=== PATIENT | male | born 1940 | race Caucasian/White ===

== ENCOUNTER 2017-11-07 21:03 | Inpatient (IN) | payer MEDICARE, MEDICAID ==
[~2017-11-07] VITALS: Ht 157.5 cm; Wt 70.3 kg
[2017-11-07 21:32] LABS: BASOPHILS % (AUTO) 0.4 % (0-1); EOSINOPHILS # (AUTO) 0.3 X10'3 (0-0.9); EOSINOPHILS % (AUTO) 3.5 % (0-6); HEMATOCRIT 39.1 % (42.0-52.0); HEMOGLOBIN 13.5 g/dl (14.0-17.9); LYMPHOCYTES # (AUTO) 1.4 X10'3 (1.1-4.8); LYMPHOCYTES % (AUTO) 13.5 % (21-51); MEAN CORPUSCULAR HEMOGLOBIN 31.9 PG (27.0-31.0); MEAN CORPUSCULAR HGB CONC 34.4 % (33.0-36.5); MEAN CORPUSCULAR VOLUME 92.7 FL (78-98); MEAN PLATELET VOLUME 7.3 FL (7.4-10.4); MONOCYTES % (AUTO) 10.4 % (2-12); NEUTROPHILS # (AUTO) 7.3 X10'3 (1.8-7.7); NEUTROPHILS % (AUTO) 72.2 % (42-75); PLATELET COUNT 253 X10'3 (140-440); RED BLOOD COUNT 4.22 X10'6 (4.70-6.10); RED CELL DISTRIBUTION WIDTH 13.7 % (11.5-14.5); WHITE BLOOD COUNT 10.1 X10'3 (4.5-11.0)
[2017-11-07 21:54] LABS: ALANINE AMINOTRANSFERASE 42 U/L (12-78); ALBUMIN 3.6 G/DL (3.4-5.0); ALBUMIN/GLOBULIN RATIO 0.9 (1.1-1.5); ALKALINE PHOSPHATASE 130 IU/L (46-116); ANION GAP 10 (8-16); ASPARTATE AMINO TRANSFERASE 83 U/L (10-37); BILIRUBIN,TOTAL 0.8 MG/DL (0.1-1.0); BLOOD UREA NITROGEN 31 MG/DL (7-18); BUN/CREATININE RATIO 19.5 (5.4-32.0); CALCIUM 9.3 MG/DL (8.5-10.1); CHLORIDE 99 MMOL/L (99-107); CREATININE 1.59 MG/DL (0.60-1.10); GLUCOSE 84 MG/DL (70-104); MAGNESIUM 2.5 MG/DL (1.5-2.4); POTASSIUM 3.4 MMOL/L (3.5-5.1); SODIUM 135 MMOL/L (135-145); TOTAL CARBON DIOXIDE 25.6 MMOL/L (24-32); TOTAL PROTEIN 7.5 G/DL (6.4-8.2); eGFR 42 ML/MIN
[2017-11-07] MEDS ORDERED: ondansetron/PF 4mg/2ml inj IV PRN (23:35)
[2017-11-07] MEDS ORDERED: morphine 4 MG/ML inj SYRINge IV PRN (23:35)
[2017-11-07] MEDS ORDERED: acetaminophen 325mg tablet PO PRN (23:35)
[2017-11-07 23:57] LABS: HEMOGLOBIN A1C 6.1 % (4.5-6.2)
[2017-11-08] VITALS (13 sets, daily range): BP systolic 94–145; BP diastolic 45–77
[2017-11-08] MEDS ORDERED: heparin 10,000 units/1 ML INJ IV ONE
[2017-11-08 00:05] LABS: PROTHROMBIN TIME 10.6 SECONDS (9.0-12.0)
[2017-11-08 00:53] LABS: PARTIAL THROMBOPLASTIN TIME 39 SECONDS (22-32)
[2017-11-08] MEDS ORDERED: tamsulosin 0.4mg capsule PO SCH (02:20)
[2017-11-08] MEDS ORDERED: LYR75C PO (04:40)
[2017-11-08] MEDS ORDERED: CYCL-394 PO (04:40)
[2017-11-08] MEDS ORDERED: HYDR-3965 PO (04:40)
[2017-11-08] MEDS ORDERED: METO-477 PO (04:40)
[2017-11-08] MEDS ORDERED: CLON0.1T PO (04:40)
[2017-11-08] MEDS ORDERED: CARV25TA2 PO (04:40)
[2017-11-08] MEDS ORDERED: CLON-529 PO (04:40)
[2017-11-08] MEDS ORDERED: ALLO100T PO (04:40)
[2017-11-08] MEDS ORDERED: FURO-150 PO (04:40)
[2017-11-08] MEDS ORDERED: AMLO2.5T2 PO (04:40)
[2017-11-08] MEDS ORDERED: FLO0.4C PO (04:40)
[2017-11-08 06:12] LABS: BASOPHILS # (AUTO) 0.1 X10'3 (0-0.2); EOSINOPHILS # (AUTO) 0.2 X10'3 (0-0.9); EOSINOPHILS % (AUTO) 2.6 % (0-6); HEMATOCRIT 39.1 % (42.0-52.0); HEMOGLOBIN 13.6 g/dl (14.0-17.9); LYMPHOCYTES # (AUTO) 0.7 X10'3 (1.1-4.8); LYMPHOCYTES % (AUTO) 7.4 % (21-51); MEAN CORPUSCULAR HEMOGLOBIN 32.2 PG (27.0-31.0); MEAN CORPUSCULAR HGB CONC 34.7 % (33.0-36.5); MEAN CORPUSCULAR VOLUME 92.7 FL (78-98); MEAN PLATELET VOLUME 7.5 FL (7.4-10.4); MONOCYTES # (AUTO) 0.7 X10'3 (0-0.9); MONOCYTES % (AUTO) 7.6 % (2-12); NEUTROPHILS # (AUTO) 7.2 X10'3 (1.8-7.7); NEUTROPHILS % (AUTO) 81.4 % (42-75); PLATELET COUNT 223 X10'3 (140-440); RED BLOOD COUNT 4.21 X10'6 (4.70-6.10); RED CELL DISTRIBUTION WIDTH 13.6 % (11.5-14.5); WHITE BLOOD COUNT 8.8 X10'3 (4.5-11.0)
[2017-11-08 06:42] LABS: ALBUMIN 3.4 G/DL (3.4-5.0); ANION GAP 15 (8-16); BLOOD UREA NITROGEN 28 MG/DL (7-18); BUN/CREATININE RATIO 20.4 (5.4-32.0); CALCIUM 9.3 MG/DL (8.5-10.1); CHLORIDE 102 MMOL/L (99-107); CHOL/HDL RATIO 2.7 (0.00-4.99); CHOLESTEROL 156 MG/DL (0-200); CREATININE 1.37 MG/DL (0.60-1.10); GLUCOSE 97 MG/DL (70-104); HDL CHOLESTEROL 57 MG/DL (35-60); LDL CHOLESTEROL 80 MG/DL (50-100); POTASSIUM 3.5 MMOL/L (3.5-5.1); SODIUM 139 MMOL/L (135-145); TRIGLYCERIDES 71 MG/DL (20-135); eGFR 50 ML/MIN
[2017-11-08] MEDS ORDERED: carVEDilol 3.125mg tablet PO SCH (08:00)
[2017-11-08] MEDS: dutasteride 0.5 MG capsule PO SCH (08:00)
[2017-11-08] MEDS ORDERED: iohexol 350MG/ML 100ml bottle IV ONE (09:47)
[2017-11-08] MEDS ORDERED: LIDOcaine 1%/PF (10mg/ml) 5ml vial ONE ×2 (09:47)
[2017-11-08] MEDS ORDERED: midazolam 2 mg/2 ml injection ONE (10:22)
[2017-11-08] MEDS: pantoprazole 40mg Tablet.DR PO SCH (11:28)
[2017-11-08] MEDS: aspirin 81mg tab.chew PO SCH (11:29)
[2017-11-08] MEDS: atorvastatin 20mg tablet PO SCH (11:30)
[2017-11-08] MEDS: lisinopril 5mg tablet PO SCH (11:31)
[2017-11-08] MEDS ORDERED: nitroGLYCERIN 0.4mg SUBLingual tab SL PRN (11:35)
[2017-11-08] MEDS ORDERED: HYDROcodone/acetaminophen 5mg/325mg tablet PO PRN (11:35)
[2017-11-08] MEDS ORDERED: normal saline 1000ml 1,000 ML IV SCH (11:35)
[2017-11-08] MEDS ORDERED: proCHLORperazine 10 MG/2 ml inj IV PRN (11:35)
[2017-11-08] MEDS ORDERED: OXAZEpam 15mg capsule PO PRN (11:35)
[2017-11-08] MEDS ORDERED: MESSAGE TO NURSING PO ONE ×4 (11:40)
[2017-11-08] MEDS ORDERED: dextrose 50%-water 50ml dispensing syringe IV PRN (11:40)
[2017-11-08 12:34] LABS: HEMATOCRIT 37.3 % (42.0-52.0); HEMOGLOBIN 12.9 g/dl (14.0-17.9); MEAN CORPUSCULAR HEMOGLOBIN 32.1 PG (27.0-31.0); MEAN CORPUSCULAR HGB CONC 34.7 % (33.0-36.5); MEAN CORPUSCULAR VOLUME 92.5 FL (78-98); MEAN PLATELET VOLUME 7.9 FL (7.4-10.4); PLATELET COUNT 225 X10'3 (140-440); RED BLOOD COUNT 4.03 X10'6 (4.70-6.10); RED CELL DISTRIBUTION WIDTH 13.9 % (11.5-14.5); WHITE BLOOD COUNT 6.8 X10'3 (4.5-11.0)
[2017-11-08] MEDS: HYDROcodone/acetaminophen 10/325mg tab PO PRN ×2 (12:42→19:20)
[2017-11-08 12:47] LABS: PARTIAL THROMBOPLASTIN TIME 32 SECONDS (22-32); PROTHROMBIN TIME 10.3 SECONDS (9.0-12.0)
[2017-11-08 12:48] LABS: ALBUMIN 3.3 G/DL (3.4-5.0); ANION GAP 12 (8-16); BLOOD UREA NITROGEN 24 MG/DL (7-18); BUN/CREATININE RATIO 17.9 (5.4-32.0); CALCIUM 8.9 MG/DL (8.5-10.1); CHLORIDE 103 MMOL/L (99-107); CREATININE 1.34 MG/DL (0.60-1.10); GLUCOSE 89 MG/DL (70-104); POTASSIUM 3.7 MMOL/L (3.5-5.1); SODIUM 139 MMOL/L (135-145); TOTAL CARBON DIOXIDE 23.8 MMOL/L (24-32); eGFR 52 ML/MIN
[2017-11-08] MEDS: insulin Lispro (HumaLOG) vial - multi-dose SQ SCH ×2 (13:00→18:00)
[2017-11-08] MEDS: cloNIDine 0.1 mg tablet PO SCH (19:17)
[2017-11-08] MEDS: allopurinol 100mg tablet PO SCH (19:19)
[2017-11-08] MEDS: carVEDilol 12.5mg tablet PO SCH (19:20)
[2017-11-08] MEDS: cyclobenzaprine 10mg tablet PO SCH (19:23)
[2017-11-08] MEDS: pregabalin 75mg capsule PO SCH (19:23)
[2017-11-08] MEDS ORDERED: METOPROLOL TARTRATE PO SCH (20:00)
[2017-11-08] MEDS: heparin 10,000 units/1 ML INJ IV PRN (21:07)
[2017-11-08] MEDS: tamsulosin 0.4mg capsule PO SCH (21:18)
[2017-11-09 03:00] VITALS: BP 122/62
[2017-11-09] MEDS: HYDROcodone/acetaminophen 10/325mg tab PO PRN ×3 (03:40→20:34)
[2017-11-09 03:49] LABS: BASOPHILS % (AUTO) 0.5 % (0-1); EOSINOPHILS # (AUTO) 0.3 X10'3 (0-0.9); EOSINOPHILS % (AUTO) 4.4 % (0-6); HEMOGLOBIN 11.7 g/dl (14.0-17.9); LYMPHOCYTES # (AUTO) 0.7 X10'3 (1.1-4.8); LYMPHOCYTES % (AUTO) 10.5 % (21-51); MEAN CORPUSCULAR HEMOGLOBIN 31.9 PG (27.0-31.0); MEAN CORPUSCULAR HGB CONC 34.3 % (33.0-36.5); MEAN PLATELET VOLUME 7.9 FL (7.4-10.4); MONOCYTES # (AUTO) 0.6 X10'3 (0-0.9); MONOCYTES % (AUTO) 10.2 % (2-12); NEUTROPHILS # (AUTO) 4.6 X10'3 (1.8-7.7); NEUTROPHILS % (AUTO) 74.4 % (42-75); PLATELET COUNT 200 X10'3 (140-440); RED BLOOD COUNT 3.66 X10'6 (4.70-6.10); RED CELL DISTRIBUTION WIDTH 13.6 % (11.5-14.5); WHITE BLOOD COUNT 6.2 X10'3 (4.5-11.0)
[2017-11-09 03:59] LABS: ALBUMIN 2.9 G/DL (3.4-5.0); ANION GAP 10 (8-16); BLOOD UREA NITROGEN 24 MG/DL (7-18); BUN/CREATININE RATIO 18.2 (5.4-32.0); CALCIUM 8.7 MG/DL (8.5-10.1); CHLORIDE 104 MMOL/L (99-107); CREATININE 1.32 MG/DL (0.60-1.10); GLUCOSE 120 MG/DL (70-104); POTASSIUM 3.2 MMOL/L (3.5-5.1); SODIUM 140 MMOL/L (135-145); TOTAL CARBON DIOXIDE 25.6 MMOL/L (24-32); eGFR 52 ML/MIN
[2017-11-09 06:15] VITALS: BP 112/57
[2017-11-09] MEDS: allopurinol 100mg tablet PO SCH ×2 (07:26→20:35)
[2017-11-09] MEDS: aspirin 81mg tab.chew PO SCH (07:27)
[2017-11-09] MEDS: atorvastatin 20mg tablet PO SCH (07:27)
[2017-11-09] MEDS: pantoprazole 40mg Tablet.DR PO SCH (07:28)
[2017-11-09] MEDS: tamsulosin 0.4mg capsule PO SCH ×2 (07:28→20:36)
[2017-11-09] MEDS: cloNIDine 0.1 mg tablet PO SCH ×2 (07:28→20:57)
[2017-11-09] MEDS: cyclobenzaprine 10mg tablet PO SCH ×2 (07:28→20:36)
[2017-11-09] MEDS: carVEDilol 12.5mg tablet PO SCH ×2 (07:28→20:35)
[2017-11-09] MEDS: furosemide 20MG tablet PO SCH (07:35)
[2017-11-09] MEDS: pregabalin 75mg capsule PO SCH ×2 (08:00→20:00)
[2017-11-09] MEDS: lisinopril 5mg tablet PO SCH (08:00)
[2017-11-09] MEDS: amLODIPine 2.5mg tablet PO SCH (08:00)
[2017-11-09] MEDS: insulin Lispro (HumaLOG) vial - multi-dose SQ SCH ×3 (09:00→18:00)
[2017-11-09] MEDS ORDERED: MESSAGE TO NURSING PO ONE (10:00)
[2017-11-09] MEDS: dutasteride 0.5 MG capsule PO SCH (10:30)
[2017-11-09] MEDS ORDERED: famotidine/PF 10 mg/ml inj IV ONE (10:45)
[2017-11-09] MEDS ORDERED: LORazepam 2 mg/ml vial IV ONE (10:45)
[2017-11-09 11:00] VITALS: BP 110/53
[2017-11-09] MEDS ORDERED: magnesium 4gm in 100ml NS 100 ML IV PRN (12:45)
[2017-11-09] MEDS ORDERED: magnesium Cl slow-release 64mg tablet PO PRN (12:45)
[2017-11-09] MEDS ORDERED: potassium Cl 40MEQ/NS 500ml 500 ML IV PRN ×2 (12:45)
[2017-11-09] MEDS ORDERED: magnesium 2GM in 50ml NS 50 ML IV PRN (12:45)
[2017-11-09] MEDS ORDERED: potassium Cl 20 mEq SR tablet PO PRN (12:45)
[2017-11-09] MEDS: potassium Cl 20 mEq SR tablet PO PRN ×2 (12:57→17:16)
[2017-11-09] MEDS: heparin 10,000 units/1 ML INJ IV PRN ×2 (14:04→21:13)
[2017-11-09 16:12] VITALS: BP 140/60
[2017-11-09] MEDS ORDERED: GABA-532 (16:36)
[2017-11-09 19:00] VITALS: BP 134/68
[2017-11-09] MEDS ORDERED: insulin regular, human inj. 100 UNITS in normal saline 100ml IV soln 100 ML IV SCH ×2 (20:00)
[2017-11-09] MEDS: mupirocin 2% ointment 22GM NS SCH (20:00)
[2017-11-09] MEDS ORDERED: chlorhexidine gluc 0.4% **topical ** 120ml btl. TP ONE (21:00)
[2017-11-09 22:05] LABS: ABG BASE EXCESS 0.6 mmol/L (-2.0-3.0); ABG HCO3 23.8 mmol/L (22.0-26.0); ABG OXYGEN SATURATION 96.1 % (95-98); ABG PCO2 (T) 33.2 mmHg (35.0-48.0); ABG PH (T) 7.473 (7.350-7.450); ABG PO2 (T) 80.6 mmHg (83-108); ALLEN'S TEST Positive; FCOHb 0.1 % (0.5-1.5); FMetHb 0.1 % (0.3-1.12); FO2Hb 95.9 % (94-100); PATIENT TEMPERATURE 36.7
[2017-11-09 23:00] VITALS: BP 145/88
[2017-11-10 03:00] VITALS: BP 158/80
[2017-11-10 03:29] LABS: BASOPHILS % (AUTO) 0.7 % (0-1); EOSINOPHILS # (AUTO) 0.3 X10'3 (0-0.9); EOSINOPHILS % (AUTO) 5.5 % (0-6); HEMATOCRIT 35.2 % (42.0-52.0); HEMOGLOBIN 12.2 g/dl (14.0-17.9); LYMPHOCYTES # (AUTO) 0.9 X10'3 (1.1-4.8); LYMPHOCYTES % (AUTO) 14.2 % (21-51); MEAN CORPUSCULAR HEMOGLOBIN 32.4 PG (27.0-31.0); MEAN CORPUSCULAR HGB CONC 34.8 % (33.0-36.5); MEAN CORPUSCULAR VOLUME 93.1 FL (78-98); MEAN PLATELET VOLUME 8.3 FL (7.4-10.4); MONOCYTES # (AUTO) 0.7 X10'3 (0-0.9); MONOCYTES % (AUTO) 11.7 % (2-12); NEUTROPHILS # (AUTO) 4.2 X10'3 (1.8-7.7); NEUTROPHILS % (AUTO) 67.9 % (42-75); PLATELET COUNT 207 X10'3 (140-440); RED BLOOD COUNT 3.78 X10'6 (4.70-6.10); RED CELL DISTRIBUTION WIDTH 14.1 % (11.5-14.5); WHITE BLOOD COUNT 6.2 X10'3 (4.5-11.0)
[2017-11-10 03:33] LABS: ALBUMIN 3.2 G/DL (3.4-5.0); ANION GAP 8 (8-16); BLOOD UREA NITROGEN 23 MG/DL (7-18); CHLORIDE 105 MMOL/L (99-107); CREATININE 1.53 MG/DL (0.60-1.10); GLUCOSE 134 MG/DL (70-104); POTASSIUM 3.8 MMOL/L (3.5-5.1); PROTHROMBIN TIME 10.1 SECONDS (9.0-12.0); SODIUM 141 MMOL/L (135-145); TOTAL CARBON DIOXIDE 28.3 MMOL/L (24-32); eGFR 44 ML/MIN
[2017-11-10] MEDS ORDERED: LORazepam 2 mg/ml vial IV ONE ×2 (05:30→09:40)
[2017-11-10] MEDS ORDERED: famotidine/PF 10 mg/ml inj IV ONE ×2 (05:30)
[2017-11-10] MEDS ORDERED: cefazolin/dext.iso 2gm/50ml 50 ML IV ONE (05:30)
[2017-11-10] MEDS ORDERED: vancomycin/NS 1 GM ADD-VANTAGE 250 ML IV ONE ×2 (05:30→09:40)
[2017-11-10] MEDS ORDERED: ceFAZolin inj. 2,000 MG in dextrose 5%-water 100 ML IV ONE ×2 (05:30→09:40)
[2017-11-10 06:30] VITALS: BP 112/57
[2017-11-10] MEDS: pregabalin 75mg capsule PO SCH ×2 (07:45→20:00)
[2017-11-10] MEDS: cloNIDine 0.1 mg tablet PO SCH ×2 (07:45→21:08)
[2017-11-10] MEDS: tamsulosin 0.4mg capsule PO SCH ×2 (07:46→21:10)
[2017-11-10] MEDS: furosemide 20MG tablet PO SCH (07:46)
[2017-11-10] MEDS: cyclobenzaprine 10mg tablet PO SCH ×2 (07:46→21:11)
[2017-11-10] MEDS: allopurinol 100mg tablet PO SCH ×2 (07:46→21:11)
[2017-11-10] MEDS: atorvastatin 20mg tablet PO SCH (07:46)
[2017-11-10] MEDS: carVEDilol 12.5mg tablet PO SCH ×2 (07:47→21:12)
[2017-11-10] MEDS: pantoprazole 40mg Tablet.DR PO SCH (07:47)
[2017-11-10] MEDS: aspirin 81mg tab.chew PO SCH (07:47)
[2017-11-10] MEDS: lisinopril 5mg tablet PO SCH (08:00)
[2017-11-10] MEDS: amLODIPine 2.5mg tablet PO SCH (08:00)
[2017-11-10] MEDS: dutasteride 0.5 MG capsule PO SCH (08:00)
[2017-11-10] MEDS: mupirocin 2% ointment 22GM NS SCH (08:00)
[2017-11-10] MEDS: insulin Lispro (HumaLOG) vial - multi-dose SQ SCH (09:00)
[2017-11-10 11:00] VITALS: BP 101/48
[2017-11-10] MEDS: ringers solution, lacted 1,000 ML IV SCH (11:21)
[2017-11-10] MEDS ORDERED: ringers solution, lacted 1,000 ML IV ONE (13:14)
[2017-11-10 15:00] VITALS: BP 130/61
[2017-11-10] MEDS: HYDROcodone/acetaminophen 10/325mg tab PO PRN ×2 (16:42→21:08)
[2017-11-10 19:00] VITALS: BP 129/61
[2017-11-10 23:00] VITALS: BP 126/61
[2017-11-11] VITALS (38 sets, daily range): BP systolic 70–139; BP diastolic 36–69
[2017-11-11] MEDS: heparin 10,000 units/1 ML INJ IV PRN (00:15)
[2017-11-11] MEDS: ringers solution, lacted 1,000 ML IV SCH (01:35)
[2017-11-11 05:30] LABS: BASOPHILS % (AUTO) 0.8 % (0-1); EOSINOPHILS # (AUTO) 0.3 X10'3 (0-0.9); HEMATOCRIT 31.9 % (42.0-52.0); MEAN CORPUSCULAR HEMOGLOBIN 31.7 PG (27.0-31.0); MEAN CORPUSCULAR HGB CONC 34.6 % (33.0-36.5); MEAN CORPUSCULAR VOLUME 91.5 FL (78-98); MEAN PLATELET VOLUME 8.2 FL (7.4-10.4); MONOCYTES # (AUTO) 0.5 X10'3 (0-0.9); MONOCYTES % (AUTO) 9.9 % (2-12); NEUTROPHILS # (AUTO) 3.4 X10'3 (1.8-7.7); NEUTROPHILS % (AUTO) 64.3 % (42-75); PLATELET COUNT 197 X10'3 (140-440); RED BLOOD COUNT 3.48 X10'6 (4.70-6.10); RED CELL DISTRIBUTION WIDTH 13.9 % (11.5-14.5); WHITE BLOOD COUNT 5.3 X10'3 (4.5-11.0)
[2017-11-11] MEDS ORDERED: famotidine/PF 10 mg/ml inj IV ONE (05:30)
[2017-11-11] MEDS ORDERED: ceFAZolin inj. 2,000 MG in dextrose 5%-water 100 ML IV ONE (05:30)
[2017-11-11] MEDS: insulin Lispro (HumaLOG) vial - multi-dose SQ SCH ×3 (05:30→18:00)
[2017-11-11] MEDS ORDERED: vancomycin/NS 1 GM ADD-VANTAGE 250 ML IV ONE (05:30)
[2017-11-11] MEDS ORDERED: LORazepam 2 mg/ml vial IV ONE (05:30)
[2017-11-11 05:39] LABS: PROTHROMBIN TIME 9.9 SECONDS (9.0-12.0)
[2017-11-11 05:49] LABS: ALBUMIN 3.1 G/DL (3.4-5.0); ANION GAP 9 (8-16); BLOOD UREA NITROGEN 22 MG/DL (7-18); BUN/CREATININE RATIO 15.1 (5.4-32.0); CALCIUM 9.1 MG/DL (8.5-10.1); CHLORIDE 105 MMOL/L (99-107); CREATININE 1.46 MG/DL (0.60-1.10); GLUCOSE 116 MG/DL (70-104); MAGNESIUM 1.9 MG/DL (1.5-2.4); POTASSIUM 3.8 MMOL/L (3.5-5.1); SODIUM 140 MMOL/L (135-145); TOTAL CARBON DIOXIDE 25.8 MMOL/L (24-32); eGFR 47 ML/MIN
[2017-11-11] MEDS ORDERED: diphenhydrAMINE 50 mg/ml inj ONE ×2 (06:55→11:54)
[2017-11-11] MEDS ORDERED: sevoflurane 250ml liquid IH ONE (06:55)
[2017-11-11] MEDS ORDERED: calcium chloride 100 MG/1 ML inj IV ONE ×3 (06:55→12:16)
[2017-11-11] MEDS ORDERED: protamine sulf. 10mg/ml inj. IV ONE (06:55)
[2017-11-11] MEDS ORDERED: MIDAZolam 1mg/ml 10ml vial ONE (07:01)
[2017-11-11] MEDS ORDERED: SUFENTANIL CITRATE 50 MCG/ML 2ml ampule IV ONE (07:01)
[2017-11-11] MEDS ORDERED: etomidate 2mg/ml inj. ONE (07:05)
[2017-11-11] MEDS ORDERED: pancuronium br 1mg/ml inj IV ONE (07:05)
[2017-11-11] MEDS ORDERED: ePHEDrine 50MG/ML INJ. ONE (07:06)
[2017-11-11] MEDS ORDERED: phenylephrine 10mg/ml inj IV ONE ×2 (07:06→08:00)
[2017-11-11] MEDS: pantoprazole 40mg Tablet.DR PO SCH (07:30)
[2017-11-11 08:00] LABS: ABG BASE EXCESS -0.2 mmol/L (-2.0-3.0); ABG HCO3 23.5 mmol/L (22.0-26.0); ABG OXYGEN SATURATION 98.9 % (95-98); ABG PCO2 34.9 mmHg (35.0-45.0); ABG PH 7.447 (7.350-7.450); ABG PO2 183.6 mmHg (60.0-100.0); CL (ABG) 106 mmol/L (99-107); FCOHb 0.3 % (0.5-1.5); FMetHb 0.3 % (0.3-1.12); FO2Hb 98.3 % (94-100); GLUCOSE (ABG) 131 mg/dl (70-105); IONIZED CA (ABG) 1.14 mmol/L (1.03-1.32); K (ABG) 3.5 mmol/L (3.3-5.1); NA (ABG) 138 mmol/L (135-145); TOTAL HEMOGLOBIN 10.4 G/dl (14.0-18.0)
[2017-11-11] MEDS: carVEDilol 12.5mg tablet PO SCH (08:00)
[2017-11-11] MEDS: furosemide 20MG tablet PO SCH (08:00)
[2017-11-11] MEDS: allopurinol 100mg tablet PO SCH ×2 (08:00→20:00)
[2017-11-11] MEDS ORDERED: methylPREDNISolone sod. succ. 500mg inj ONE (08:00)
[2017-11-11] MEDS: cyclobenzaprine 10mg tablet PO SCH (08:00)
[2017-11-11] MEDS: tamsulosin 0.4mg capsule PO SCH (08:00)
[2017-11-11] MEDS: dutasteride 0.5 MG capsule PO SCH (08:00)
[2017-11-11] MEDS: aspirin 81mg tab.chew PO SCH (08:00)
[2017-11-11] MEDS ORDERED: papaverine 30 mg/ml 2ml inj. ONE (08:00)
[2017-11-11] MEDS: cloNIDine 0.1 mg tablet PO SCH (08:00)
[2017-11-11] MEDS ORDERED: LIDOcaine 2% (20 mg/ml) 5ml cardiac syringe ONE (08:00)
[2017-11-11] MEDS: atorvastatin 20mg tablet PO SCH (08:00)
[2017-11-11] MEDS ORDERED: sodium bicarbonate (8.4%) 1 mEq/ml syringe ONE (08:00)
[2017-11-11] MEDS ORDERED: heparin 1,000 units/ml 10ml inj ONE (08:00)
[2017-11-11] MEDS: lisinopril 5mg tablet PO SCH (08:00)
[2017-11-11] MEDS: pregabalin 75mg capsule PO SCH ×2 (08:00→20:00)
[2017-11-11] MEDS ORDERED: albumin (human) 25% 100 ML IV solution IV ONE (08:00)
[2017-11-11] MEDS ORDERED: heparin 10,000 units/1 ML INJ ONE ×2 (08:00)
[2017-11-11] MEDS ORDERED: potassium acetate 2 mEq/1ml inj. IV ONE (08:00)
[2017-11-11] MEDS ORDERED: atropine 0.1mg/ml 10ml syringe ONE (08:00)
[2017-11-11] MEDS ORDERED: MAGNESIUM SULFATE 4 MEQ/ML (1gm/2ml) injection ONE (08:00)
[2017-11-11] MEDS ORDERED: heparin 10,000 units/1 ML INJ IR ONE (08:18)
[2017-11-11] MEDS ORDERED: papaverine 30 mg/ml 2ml inj. IA ONE (08:19)
[2017-11-11 08:21] LABS: ACT @ 1.70 U 367 SEC (193-297); ACT @ 2.84 U 506 SEC (260-420); BASELINE ACT 176 SEC (101-148); PATIENT WEIGHT 70.0k KG
[2017-11-11] MEDS ORDERED: NORMAL SALINE IV ONE (08:40)
[2017-11-11] MEDS ORDERED: TRANEXAMIC ACID IV ONE (08:40)
[2017-11-11 09:25] LABS: ABG BASE EXCESS 0.2 mmol/L (-2.0-3.0); ABG HCO3 23.7 mmol/L (22.0-26.0); ABG OXYGEN SATURATION 99.4 % (95-98); ABG PCO2 32.8 mmHg (35.0-45.0); ABG PH 7.476 (7.350-7.450); ABG PO2 421.3 mmHg (60.0-100.0); CL (ABG) 104 mmol/L (99-107); FCOHb 0.6 % (0.5-1.5); FMetHb 0.4 % (0.3-1.12); FO2Hb 98.4 % (94-100); GLUCOSE (ABG) 97 mg/dl (70-105); IONIZED CA (ABG) 1.06 mmol/L (1.03-1.32); K (ABG) 4.6 mmol/L (3.3-5.1); NA (ABG) 136 mmol/L (135-145); TOTAL HEMOGLOBIN 7.4 G/dl (14.0-18.0)
[2017-11-11 09:46] LABS: ABG BASE EXCESS VENOUS 1.7 mmol/L; ABG HCO3 VENOUS 26.5 mmol/L; ABG PCO2 VENOUS 42.7 mmHg; ABG PO2 VENOUS 52.2 mmHg; CL (ABG) 105 mmol/L (99-107); FCOHb VENOUS 0.9 %; FMetHb VENOUS 0.4 %; FO2Hb VENOUS 84.7 %; GLUCOSE (ABG) 107 mg/dl (70-105); IONIZED CA (ABG) 1.08 mmol/L (1.03-1.32); K (ABG) 4.5 mmol/L (3.3-5.1); NA (ABG) 137 mmol/L (135-145); TOTAL HEMOGLOBIN 7.7 G/dl (14.0-18.0)
[2017-11-11 10:20] LABS: ABG BASE EXCESS VENOUS -1.3 mmol/L; ABG HCO3 VENOUS 23.1 mmol/L; ABG PCO2 VENOUS 37.3 mmHg; CL (ABG) 105 mmol/L (99-107); FCOHb VENOUS 0.6 %; FHHb VENOUS 13.7 %; FMetHb VENOUS 0.5 %; FO2Hb VENOUS 85.2 %; GLUCOSE (ABG) 123 mg/dl (70-105); IONIZED CA (ABG) 1.08 mmol/L (1.03-1.32); K (ABG) 4.6 mmol/L (3.3-5.1); NA (ABG) 136 mmol/L (135-145); TOTAL HEMOGLOBIN 8.1 G/dl (14.0-18.0)
[2017-11-11 10:50] LABS: ABG BASE EXCESS -1.7 mmol/L (-2.0-3.0); ABG HCO3 22.1 mmol/L (22.0-26.0); ABG OXYGEN SATURATION 99.2 % (95-98); ABG PCO2 33.5 mmHg (35.0-45.0); ABG PH 7.438 (7.350-7.450); ABG PO2 287.8 mmHg (60.0-100.0); CL (ABG) 106 mmol/L (99-107); FCOHb 0.4 % (0.5-1.5); FMetHb 0.6 % (0.3-1.12); FO2Hb 98.2 % (94-100); GLUCOSE (ABG) 118 mg/dl (70-105); IONIZED CA (ABG) 1.07 mmol/L (1.03-1.32); K (ABG) 4.2 mmol/L (3.3-5.1); NA (ABG) 137 mmol/L (135-145); TOTAL HEMOGLOBIN 8.3 G/dl (14.0-18.0)
[2017-11-11 11:25] LABS: ABG BASE EXCESS 2.8 mmol/L (-2.0-3.0); ABG HCO3 26.5 mmol/L (22.0-26.0); ABG OXYGEN SATURATION 99.3 % (95-98); ABG PCO2 36.7 mmHg (35.0-45.0); ABG PH 7.477 (7.350-7.450); ABG PO2 468.8 mmHg (60.0-100.0); CL (ABG) 105 mmol/L (99-107); FCOHb 0.4 % (0.5-1.5); FMetHb 0.6 % (0.3-1.12); FO2Hb 98.3 % (94-100); GLUCOSE (ABG) 109 mg/dl (70-105); IONIZED CA (ABG) 1.24 mmol/L (1.03-1.32); K (ABG) 4.3 mmol/L (3.3-5.1); NA (ABG) 137 mmol/L (135-145); TOTAL HEMOGLOBIN 7.5 G/dl (14.0-18.0)
[2017-11-11] MEDS ORDERED: dexamethasone sod phosphate 4mg/ml inj. ONE (11:51)
[2017-11-11] MEDS ORDERED: midazolam 2 mg/2 ml injection IV ONE (12:15)
[2017-11-11 12:21] LABS: ABG BASE EXCESS VENOUS -0.4 mmol/L; ABG HCO3 VENOUS 24.6 mmol/L; ABG PCO2 VENOUS 41.9 mmHg; ABG PO2 VENOUS 30.7 mmHg; CL (ABG) 106 mmol/L (99-107); FCOHb VENOUS 0.5 %; FHHb VENOUS 41.9 %; FMetHb VENOUS 0.5 %; FO2Hb VENOUS 57.1 %; GLUCOSE (ABG) 118 mg/dl (70-105); IONIZED CA (ABG) 1.35 mmol/L (1.03-1.32); K (ABG) 4.3 mmol/L (3.3-5.1); NA (ABG) 138 mmol/L (135-145); TOTAL HEMOGLOBIN 9.1 G/dl (14.0-18.0)
[2017-11-11] MEDS ORDERED: nitroGLYCERIN-Tridil 50MG/D5W 250 ML IV PRN (13:10)
[2017-11-11] MEDS ORDERED: sodium phosphate inj. 15 MMOL in dextrose 5%-water 150 ML IV PRN (13:10)
[2017-11-11] MEDS ORDERED: metoclopramide 5 mg/ml inj IV PRN (13:10)
[2017-11-11] MEDS ORDERED: insulin regular, human inj. 100 UNITS in normal saline 100ml IV soln 100 ML IV SCH ×2 (13:10)
[2017-11-11] MEDS ORDERED: magnesium 4gm in 100ml NS 100 ML IV PRN (13:10)
[2017-11-11] MEDS ORDERED: dextrose 50%-water 50ml dispensing syringe IV PRN (13:10)
[2017-11-11] MEDS ORDERED: magnesium 2GM in 50ml NS 50 ML IV PRN (13:10)
[2017-11-11] MEDS ORDERED: DOPamine 400mg/D5W 250ml 250 ML IV PRN (13:10)
[2017-11-11] MEDS ORDERED: acetaminophen 325mg tablet PO PRN (13:10)
[2017-11-11] MEDS ORDERED: Neutra Phos packet PO PRN (13:10)
[2017-11-11] MEDS ORDERED: magnesium hydroxide 30ml (MOM) UD suspension PO PRN (13:10)
[2017-11-11] MEDS ORDERED: niCARDipine/sod cl 20mg/200ml 200 ML IV PRN (13:10)
[2017-11-11] MEDS ORDERED: normal saline 250ml IV soln 250 ML IV PRN (13:10)
[2017-11-11] MEDS ORDERED: sodium phosphate inj. 30 MMOL in dextrose 5%-water 250 ML IV PRN (13:10)
[2017-11-11] MEDS ORDERED: potassium Cl 20mEq/100mL bag 100 ML IV PRN ×2 (13:10)
[2017-11-11] MEDS ORDERED: albumin (Human) 5% 250ml 250 ML IV ONE (13:19)
[2017-11-11 13:27] LABS: BASOPHILS % (AUTO) 0.2 % (0-1); EOSINOPHILS # (AUTO) 0.2 X10'3 (0-0.9); EOSINOPHILS % (AUTO) 1.6 % (0-6); HEMATOCRIT 30.3 % (42.0-52.0); HEMOGLOBIN 10.8 g/dl (14.0-17.9); LYMPHOCYTES # (AUTO) 0.4 X10'3 (1.1-4.8); LYMPHOCYTES % (AUTO) 3.6 % (21-51); MEAN CORPUSCULAR HEMOGLOBIN 32.1 PG (27.0-31.0); MEAN CORPUSCULAR HGB CONC 35.5 % (33.0-36.5); MEAN CORPUSCULAR VOLUME 90.5 FL (78-98); MEAN PLATELET VOLUME 7.9 FL (7.4-10.4); MONOCYTES # (AUTO) 0.5 X10'3 (0-0.9); MONOCYTES % (AUTO) 4.4 % (2-12); NEUTROPHILS # (AUTO) 10.1 X10'3 (1.8-7.7); NEUTROPHILS % (AUTO) 90.2 % (42-75); PLATELET COUNT 139 X10'3 (140-440); RED BLOOD COUNT 3.35 X10'6 (4.70-6.10); RED CELL DISTRIBUTION WIDTH 14.2 % (11.5-14.5); WHITE BLOOD COUNT 11.2 X10'3 (4.5-11.0)
[2017-11-11 13:40] LABS: ABG HCO3 24.8 mmol/L (22.0-26.0); ABG OXYGEN SATURATION 97.4 % (95-98); ABG PCO2 (T) 36.7 mmHg (35.0-48.0); ABG PH (T) 7.448 (7.350-7.450); ABG PO2 (T) 106.9 mmHg (83-108); FCOHb 0.3 % (0.5-1.5); FMetHb 0.1 % (0.3-1.12); MINUTE VOLUME 11 L/min; PEEP 5 cm H2O; RESPIRATORY RATE 12 b/min; RESPIRATORY RATE (OBSERVED) 12 b/min; TIDAL VOLUME 600 mL
[2017-11-11 13:41] LABS: INR 1.1 INR; PARTIAL THROMBOPLASTIN TIME 40 SECONDS (22-32); PROTHROMBIN TIME 11.1 SECONDS (9.0-12.0)
[2017-11-11 13:46] LABS: ALANINE AMINOTRANSFERASE 25 U/L (12-78); ALBUMIN 2.5 G/DL (3.4-5.0); ALBUMIN/GLOBULIN RATIO 1.1 (1.1-1.5); ALKALINE PHOSPHATASE 60 IU/L (46-116); ANION GAP 8 (8-16); ASPARTATE AMINO TRANSFERASE 42 U/L (10-37); BILIRUBIN,TOTAL 0.6 MG/DL (0.1-1.0); BLOOD UREA NITROGEN 18 MG/DL (7-18); BUN/CREATININE RATIO 15.3 (5.4-32.0); CHLORIDE 110 MMOL/L (99-107); CREATININE 1.18 MG/DL (0.60-1.10); GLUCOSE 171 MG/DL (70-104); MAGNESIUM 3.9 MG/DL (1.5-2.4); PHOSPHORUS 2.2 MG/DL (2.3-4.5); POTASSIUM 4.5 MMOL/L (3.5-5.1); SODIUM 143 MMOL/L (135-145); TOTAL CARBON DIOXIDE 24.9 MMOL/L (24-32); TOTAL PROTEIN 4.8 G/DL (6.4-8.2); eGFR 60 ML/MIN
[2017-11-11] MEDS: insulin regular, human inj. 100 UNITS in normal saline 100ml IV soln 100 ML IV SCH ×6 (14:10→23:29)
[2017-11-11] MEDS: sodium chloride 0.45% 1,000 ML IV SCH (14:17)
[2017-11-11] MEDS: albumin (Human) 5% 250ml 250 ML IV PRN ×4 (14:22→20:16)
[2017-11-11] MEDS: ceFAZolin 1GM/D5W- ADD-VANTAGE 50 ML IV SCH (16:41)
[2017-11-11 16:53] LABS: MEAN CORPUSCULAR HEMOGLOBIN 31.7 PG (27.0-31.0); MEAN CORPUSCULAR HGB CONC 34.4 % (33.0-36.5); PLATELET COUNT 118 X10'3 (140-440); WHITE BLOOD COUNT 7.9 X10'3 (4.5-11.0)
[2017-11-11 16:57] LABS: HEMATOCRIT 20.3 % (42.0-52.0)
[2017-11-11] MEDS: morphine 4 MG/ML inj SYRINge IV PRN ×3 (17:16→21:40)
[2017-11-11] MEDS ORDERED: propofol 1000mg/100ml bottle 100 ML IV ONE (18:09)
[2017-11-11 18:27] LABS: INR 1.1 INR; PARTIAL THROMBOPLASTIN TIME 66 SECONDS (22-32); PROTHROMBIN TIME 11.6 SECONDS (9.0-12.0)
[2017-11-11] MEDS ORDERED: midazolam 100mg in NS 100ml 100 ML IV PRN (18:50)
[2017-11-11] MEDS ORDERED: NORepinephrine 8mg/ 250ml NS 250 ML IV SCH (19:55)
[2017-11-11] MEDS: docusate sod 100mg capsule PO SCH (20:00)
[2017-11-11] MEDS: vancomycin/NS 1 GM ADD-VANTAGE 250 ML IV SCH (21:32)
[2017-11-11] MEDS: mupirocin 2% ointment 22GM NS SCH (21:32)
[2017-11-11 22:19] LABS: BASOPHILS % (AUTO) 0 % (0-1); EOSINOPHILS % (AUTO) 0 % (0-6); LYMPHOCYTES # (AUTO) 0.2 X10'3 (1.1-4.8); LYMPHOCYTES % (AUTO) 3.2 % (21-51); MEAN CORPUSCULAR HEMOGLOBIN 30.8 PG (27.0-31.0); MEAN CORPUSCULAR HGB CONC 34.8 % (33.0-36.5); MEAN CORPUSCULAR VOLUME 88.3 FL (78-98); MEAN PLATELET VOLUME 7.5 FL (7.4-10.4); MONOCYTES # (AUTO) 0.4 X10'3 (0-0.9); MONOCYTES % (AUTO) 5.9 % (2-12); NEUTROPHILS # (AUTO) 6.7 X10'3 (1.8-7.7); NEUTROPHILS % (AUTO) 90.9 % (42-75); PLATELET COUNT 119 X10'3 (140-440); RED BLOOD COUNT 2.05 X10'6 (4.70-6.10); RED CELL DISTRIBUTION WIDTH 14.6 % (11.5-14.5); WHITE BLOOD COUNT 7.4 X10'3 (4.5-11.0)
[2017-11-11 22:24] LABS: HEMATOCRIT 18.1 % (42.0-52.0); HEMOGLOBIN 6.3 g/dl (14.0-17.9)
[2017-11-11 22:29] LABS: PARTIAL THROMBOPLASTIN TIME 31 SECONDS (22-32); PROTHROMBIN TIME 10.6 SECONDS (9.0-12.0)
[2017-11-11 22:34] LABS: ALANINE AMINOTRANSFERASE 28 U/L (12-78); ALBUMIN/GLOBULIN RATIO 1.4 (1.1-1.5); ALKALINE PHOSPHATASE 43 IU/L (46-116); ANION GAP 9 (8-16); ASPARTATE AMINO TRANSFERASE 53 U/L (10-37); BILIRUBIN,TOTAL 1.2 MG/DL (0.1-1.0); BLOOD UREA NITROGEN 20 MG/DL (7-18); BUN/CREATININE RATIO 14.8 (5.4-32.0); CHLORIDE 113 MMOL/L (99-107); CREATININE 1.35 MG/DL (0.60-1.10); GLUCOSE 123 MG/DL (70-104); MAGNESIUM 2.9 MG/DL (1.5-2.4); PHOSPHORUS 1.6 MG/DL (2.3-4.5); SODIUM 145 MMOL/L (135-145); TOTAL CARBON DIOXIDE 22.9 MMOL/L (24-32); TOTAL PROTEIN 5.1 G/DL (6.4-8.2); eGFR 51 ML/MIN
[2017-11-11] MEDS: potassium Cl 20mEq/100mL bag 100 ML IV PRN (23:41)
[2017-11-12] VITALS (27 sets, daily range): BP systolic 111–178; BP diastolic 40–68
[2017-11-12] MEDS: insulin regular, human inj. 100 UNITS in normal saline 100ml IV soln 100 ML IV SCH ×8 (00:19→11:24)
[2017-11-12] MEDS: morphine 4 MG/ML inj SYRINge IV PRN ×6 (00:48→19:53)
[2017-11-12] MEDS: ceFAZolin 1GM/D5W- ADD-VANTAGE 50 ML IV SCH ×3 (00:48→15:52)
[2017-11-12 02:45] LABS: ABG BASE EXCESS -3.5 mmol/L (-2.0-3.0); ABG HCO3 19.9 mmol/L (22.0-26.0); ABG OXYGEN SATURATION 92.7 % (95-98); ABG PCO2 (T) 28.1 mmHg (35.0-48.0); ABG PH (T) 7.464 (7.350-7.450); ABG PO2 (T) 61.7 mmHg (83-108); FCOHb 0.3 % (0.5-1.5); FMetHb 0.2 % (0.3-1.12); FO2Hb 92.2 % (94-100); MINUTE VOLUME 8 L/min; PEEP 5 cm H2O; RESPIRATORY RATE 12 b/min; RESPIRATORY RATE (OBSERVED) 12 b/min; TIDAL VOLUME 400 mL; TOTAL HEMOGLOBIN 7.8 G/dl (14.0-18.0)
[2017-11-12 04:52] LABS: BASOPHILS % (AUTO) 0 % (0-1); EOSINOPHILS % (AUTO) 0 % (0-6); HEMATOCRIT 24.4 % (42.0-52.0); HEMOGLOBIN 8.5 g/dl (14.0-17.9); LYMPHOCYTES # (AUTO) 0.3 X10'3 (1.1-4.8); LYMPHOCYTES % (AUTO) 3.7 % (21-51); MEAN CORPUSCULAR HEMOGLOBIN 30.5 PG (27.0-31.0); MEAN CORPUSCULAR HGB CONC 34.8 % (33.0-36.5); MEAN CORPUSCULAR VOLUME 87.5 FL (78-98); MONOCYTES # (AUTO) 0.6 X10'3 (0-0.9); MONOCYTES % (AUTO) 7.5 % (2-12); NEUTROPHILS # (AUTO) 6.6 X10'3 (1.8-7.7); NEUTROPHILS % (AUTO) 88.8 % (42-75); PLATELET COUNT 102 X10'3 (140-440); RED BLOOD COUNT 2.79 X10'6 (4.70-6.10); RED CELL DISTRIBUTION WIDTH 14.4 % (11.5-14.5); WHITE BLOOD COUNT 7.5 X10'3 (4.5-11.0)
[2017-11-12 05:04] LABS: PARTIAL THROMBOPLASTIN TIME 29 SECONDS (22-32); PROTHROMBIN TIME 10.3 SECONDS (9.0-12.0)
[2017-11-12 05:18] LABS: ALANINE AMINOTRANSFERASE 32 U/L (12-78); ALBUMIN 2.9 G/DL (3.4-5.0); ALBUMIN/GLOBULIN RATIO 1.4 (1.1-1.5); ALKALINE PHOSPHATASE 46 IU/L (46-116); ANION GAP 10 (8-16); ASPARTATE AMINO TRANSFERASE 76 U/L (10-37); BILIRUBIN,TOTAL 1.1 MG/DL (0.1-1.0); BLOOD UREA NITROGEN 22 MG/DL (7-18); BUN/CREATININE RATIO 17.2 (5.4-32.0); CALCIUM 8.1 MG/DL (8.5-10.1); CHLORIDE 113 MMOL/L (99-107); CREATININE 1.28 MG/DL (0.60-1.10); GLUCOSE 118 MG/DL (70-104); MAGNESIUM 2.8 MG/DL (1.5-2.4); PHOSPHORUS 3.6 MG/DL (2.3-4.5); POTASSIUM 4.3 MMOL/L (3.5-5.1); SODIUM 145 MMOL/L (135-145); TOTAL CARBON DIOXIDE 22.4 MMOL/L (24-32); eGFR 54 ML/MIN
[2017-11-12] MEDS: potassium Cl 20mEq/100mL bag 100 ML IV PRN (05:42)
[2017-11-12] MEDS: pantoprazole 40mg Tablet.DR PO SCH (07:39)
[2017-11-12] MEDS: mupirocin 2% ointment 22GM NS SCH ×2 (07:39→20:32)
[2017-11-12] MEDS: dutasteride 0.5 MG capsule PO SCH (07:40)
[2017-11-12] MEDS: docusate sod 100mg capsule PO SCH ×2 (07:40→20:00)
[2017-11-12] MEDS: aspirin 325mg tablet, delayed-release (Ecotrin) PO SCH (07:41)
[2017-11-12] MEDS: atorvastatin 10mg tablet PO SCH (07:41)
[2017-11-12] MEDS: allopurinol 100mg tablet PO SCH ×2 (07:42→20:00)
[2017-11-12] MEDS: tamsulosin 0.4mg capsule PO SCH (07:45)
[2017-11-12] MEDS: pregabalin 75mg capsule PO SCH ×2 (07:48→20:00)
[2017-11-12] MEDS: metoprolol tartrate 12.5mg (1/2 tablet) PO SCH ×2 (08:00→20:00)
[2017-11-12] MEDS: insulin Lispro (HumaLOG) vial - multi-dose SQ SCH ×2 (08:11→12:22)
[2017-11-12] MEDS: vancomycin/NS 1 GM ADD-VANTAGE 250 ML IV SCH ×2 (08:54→20:26)
[2017-11-12 10:35] LABS: ABG BASE EXCESS -4.7 mmol/L (-2.0-3.0); ABG HCO3 19.6 mmol/L (22.0-26.0); ABG OXYGEN SATURATION 89.2 % (95-98); ABG PCO2 (T) 32.9 mmHg (35.0-48.0); ABG PH (T) 7.392 (7.350-7.450); FCOHb 0.3 % (0.5-1.5); FMetHb 0.3 % (0.3-1.12); FO2Hb 88.7 % (94-100); PEEP 5 cm H2O; RESPIRATORY RATE (OBSERVED) 18 b/min; TOTAL HEMOGLOBIN 9.1 G/dl (14.0-18.0)
[2017-11-12] MEDS ORDERED: furosemide 40mg/4ml inj IV ONE ×2 (12:20→17:20)
[2017-11-12 16:36] LABS: ABG BASE EXCESS -4.9 mmol/L (-2.0-3.0); ABG HCO3 18.6 mmol/L (22.0-26.0); ABG OXYGEN SATURATION 87.4 % (95-98); ABG PH (T) 7.426 (7.350-7.450); ABG PO2 (T) 55.1 mmHg (83-108); FCOHb 0.3 % (0.5-1.5); FMetHb 0.2 % (0.3-1.12); MINUTE VOLUME 8 L/min; PEEP 10 cm H2O; RESPIRATORY RATE (OBSERVED) 12 b/min; TOTAL HEMOGLOBIN 9.1 G/dl (14.0-18.0)
[2017-11-12] MEDS ORDERED: thiamine 100mg/ml 2ml inj. IV ONE (17:30)
[2017-11-12 17:53] LABS: HEMATOCRIT 23.5 % (42.0-52.0); HEMOGLOBIN 8.1 g/dl (14.0-17.9); MEAN CORPUSCULAR HEMOGLOBIN 30.3 PG (27.0-31.0); MEAN CORPUSCULAR HGB CONC 34.6 % (33.0-36.5); MEAN CORPUSCULAR VOLUME 87.5 FL (78-98); MEAN PLATELET VOLUME 10.7 FL (7.4-10.4); PLATELET COUNT 91 X10'3 (140-440); RED BLOOD COUNT 2.69 X10'6 (4.70-6.10); RED CELL DISTRIBUTION WIDTH 15.2 % (11.5-14.5); WHITE BLOOD COUNT 10.9 X10'3 (4.5-11.0)
[2017-11-12 17:56] LABS: OXYGEN SATURATION (MIXED VEN) 60.6 % (60-80); PO2 MIXED VENOUS (TEMP COR) 31.7 mmHg (35-46)
[2017-11-12] MEDS: lactobacillus rhamnosus 10,000 MMU CELLS/CAPSULE PO SCH (20:32)
[2017-11-12] MEDS: folic acid 1mg/0.2ml inj IV SCH (20:39)
[2017-11-13] VITALS (24 sets, daily range): BP systolic 122–172; BP diastolic 44–82
[2017-11-13] MEDS: morphine 4 MG/ML inj SYRINge IV PRN ×4 (00:08→20:19)
[2017-11-13] MEDS: ceFAZolin 1GM/D5W- ADD-VANTAGE 50 ML IV SCH (00:15)
[2017-11-13 02:44] LABS: BASOPHILS % (AUTO) 0 % (0-1); EOSINOPHILS % (AUTO) 0 % (0-6); HEMOGLOBIN 7.6 g/dl (14.0-17.9); LYMPHOCYTES # (AUTO) 0.4 X10'3 (1.1-4.8); LYMPHOCYTES % (AUTO) 3.6 % (21-51); MEAN CORPUSCULAR HEMOGLOBIN 30.5 PG (27.0-31.0); MEAN CORPUSCULAR HGB CONC 34.4 % (33.0-36.5); MEAN CORPUSCULAR VOLUME 88.8 FL (78-98); MEAN PLATELET VOLUME 8.9 FL (7.4-10.4); MONOCYTES # (AUTO) 1.4 X10'3 (0-0.9); MONOCYTES % (AUTO) 13.1 % (2-12); NEUTROPHILS # (AUTO) 8.6 X10'3 (1.8-7.7); NEUTROPHILS % (AUTO) 83.3 % (42-75); PLATELET COUNT 102 X10'3 (140-440); RED BLOOD COUNT 2.48 X10'6 (4.70-6.10); RED CELL DISTRIBUTION WIDTH 15.9 % (11.5-14.5); WHITE BLOOD COUNT 10.3 X10'3 (4.5-11.0)
[2017-11-13 02:57] LABS: ALBUMIN 2.8 G/DL (3.4-5.0); ANION GAP 10 (8-16); BLOOD UREA NITROGEN 36 MG/DL (7-18); BUN/CREATININE RATIO 20.1 (5.4-32.0); CALCIUM 7.9 MG/DL (8.5-10.1); CHLORIDE 111 MMOL/L (99-107); CREATININE 1.79 MG/DL (0.60-1.10); GLUCOSE 179 MG/DL (70-104); MAGNESIUM 2.5 MG/DL (1.5-2.4); PHOSPHORUS 5.4 MG/DL (2.3-4.5); POTASSIUM 4.7 MMOL/L (3.5-5.1); SODIUM 144 MMOL/L (135-145); TOTAL CARBON DIOXIDE 22.8 MMOL/L (24-32); eGFR 37 ML/MIN
[2017-11-13 04:06] LABS: ABG HCO3 18.4 mmol/L (22.0-26.0); ABG OXYGEN SATURATION 95.9 % (95-98); ABG PCO2 (T) 28.4 mmHg (35.0-48.0); ABG PO2 (T) 89.3 mmHg (83-108); FCOHb 0.3 % (0.5-1.5); FO2Hb 95.6 % (94-100); MINUTE VOLUME 8 L/min; PATIENT TEMPERATURE 37.1; PEEP 12 cm H2O; RESPIRATORY RATE 14 b/min; RESPIRATORY RATE (OBSERVED) 14 b/min; TIDAL VOLUME 500 mL
[2017-11-13] MEDS: dutasteride 0.5 MG capsule PO SCH (08:00)
[2017-11-13] MEDS: folic acid 1mg/0.2ml inj IV SCH (08:00)
[2017-11-13] MEDS: docusate sod 100mg capsule PO SCH ×2 (08:00→20:00)
[2017-11-13] MEDS: aspirin 325mg tablet, delayed-release (Ecotrin) PO SCH (08:40)
[2017-11-13] MEDS: lactobacillus rhamnosus 10,000 MMU CELLS/CAPSULE PO SCH ×2 (08:40→20:00)
[2017-11-13] MEDS: allopurinol 100mg tablet PO SCH ×2 (08:40→20:00)
[2017-11-13] MEDS: tamsulosin 0.4mg capsule PO SCH (08:40)
[2017-11-13] MEDS: pregabalin 75mg capsule PO SCH ×2 (08:40→20:00)
[2017-11-13] MEDS: atorvastatin 10mg tablet PO SCH (08:40)
[2017-11-13] MEDS: pantoprazole 40mg Tablet.DR PO SCH (08:44)
[2017-11-13] MEDS: mupirocin 2% ointment 22GM NS SCH (08:45)
[2017-11-13] MEDS ORDERED: folic acid 1mg/0.2ml inj IV ONE (10:03)
[2017-11-13] MEDS ORDERED: metoprolol tartrate 12.5mg (1/2 tablet) PO ONE (10:10)
[2017-11-13] MEDS: sodium chloride 0.45% 1,000 ML IV SCH (12:49)
[2017-11-13] MEDS ORDERED: furosemide 40mg/4ml inj IV ONE (13:55)
[2017-11-13] MEDS ORDERED: metoprolol tartrate 50mg tablet PO ONE ×2 (13:55→14:55)
[2017-11-13 14:06] LABS: ABG BASE EXCESS -2.4 mmol/L (-2.0-3.0); ABG HCO3 21.4 mmol/L (22.0-26.0); ABG OXYGEN SATURATION 96.5 % (95-98); ABG PCO2 (T) 32.4 mmHg (35.0-48.0); ABG PH (T) 7.438 (7.350-7.450); ABG PO2 (T) 103.3 mmHg (83-108); FCOHb 0.3 % (0.5-1.5); FMetHb 0.1 % (0.3-1.12); FO2Hb 96.1 % (94-100); MINUTE VOLUME 7 L/min; PEEP 5 cm H2O; RESPIRATORY RATE 12 b/min; RESPIRATORY RATE (OBSERVED) 12 b/min
[2017-11-13] MEDS: metoprolol tartrate 25mg tablet PO SCH (20:00)
[2017-11-13] MEDS ORDERED: ketorolac trometh. 30mg/ml inj. IV PRN (20:45)
[2017-11-13] MEDS: haloperidol lactate 5mg/ml inj IM PRN (21:05)
[2017-11-13] MEDS: ketorolac tromethamine 15mg/ml inj. IV PRN (21:09)
[2017-11-13] MEDS ORDERED: haloperidol lactate 5mg/ml inj IM ONE (22:55)
[2017-11-13 23:05] LABS: ABG BASE EXCESS -1.4 mmol/L (-2.0-3.0); ABG HCO3 23.4 mmol/L (22.0-26.0); ABG OXYGEN SATURATION 85.4 % (95-98); ABG PCO2 (T) 39.9 mmHg (35.0-48.0); ABG PH (T) 7.387 (7.350-7.450); ABG PO2 (T) 54.3 mmHg (83-108); ALLEN'S TEST Positive; FCOHb 0.3 % (0.5-1.5); FLOW 5 L/min; FMetHb 0.2 % (0.3-1.12); PATIENT TEMPERATURE 37.3; TOTAL HEMOGLOBIN 8.6 G/dl (14.0-18.0)
[2017-11-14] VITALS (24 sets, daily range): BP systolic 118–188; BP diastolic 56–81
[2017-11-14 03:16] LABS: BASOPHILS % (AUTO) 0 % (0-1); EOSINOPHILS # (AUTO) 0.1 X10'3 (0-0.9); EOSINOPHILS % (AUTO) 0.8 % (0-6); HEMATOCRIT 22.9 % (42.0-52.0); HEMOGLOBIN 7.9 g/dl (14.0-17.9); LYMPHOCYTES # (AUTO) 0.5 X10'3 (1.1-4.8); LYMPHOCYTES % (AUTO) 5.1 % (21-51); MEAN CORPUSCULAR HEMOGLOBIN 30.8 PG (27.0-31.0); MEAN CORPUSCULAR HGB CONC 34.6 % (33.0-36.5); MEAN CORPUSCULAR VOLUME 89.1 FL (78-98); MEAN PLATELET VOLUME 8.5 FL (7.4-10.4); MONOCYTES # (AUTO) 1.4 X10'3 (0-0.9); MONOCYTES % (AUTO) 12.9 % (2-12); NEUTROPHILS # (AUTO) 8.7 X10'3 (1.8-7.7); NEUTROPHILS % (AUTO) 81.2 % (42-75); PLATELET COUNT 104 X10'3 (140-440); RED BLOOD COUNT 2.57 X10'6 (4.70-6.10); RED CELL DISTRIBUTION WIDTH 15.7 % (11.5-14.5); WHITE BLOOD COUNT 10.7 X10'3 (4.5-11.0)
[2017-11-14] MEDS: ketorolac tromethamine 15mg/ml inj. IV PRN (03:19)
[2017-11-14 03:31] LABS: ALBUMIN 3.1 G/DL (3.4-5.0); ANION GAP 10 (8-16); BLOOD UREA NITROGEN 47 MG/DL (7-18); BUN/CREATININE RATIO 25.4 (5.4-32.0); CALCIUM 8.4 MG/DL (8.5-10.1); CHLORIDE 107 MMOL/L (99-107); CREATININE 1.85 MG/DL (0.60-1.10); GLUCOSE 146 MG/DL (70-104); MAGNESIUM 2.5 MG/DL (1.5-2.4); PHOSPHORUS 4.7 MG/DL (2.3-4.5); POTASSIUM 4.2 MMOL/L (3.5-5.1); SODIUM 141 MMOL/L (135-145); TOTAL CARBON DIOXIDE 23.6 MMOL/L (24-32); eGFR 36 ML/MIN
[2017-11-14] MEDS: haloperidol lactate 5mg/ml inj IM PRN (04:49)
[2017-11-14] MEDS: metoprolol tartrate 25mg tablet PO SCH ×2 (10:37→19:27)
[2017-11-14] MEDS: HYDROcodone/acetaminophen 10/325mg tab PO PRN (12:06)
[2017-11-14] MEDS: allopurinol 100mg tablet PO SCH ×2 (13:33→19:27)
[2017-11-14] MEDS: aspirin 325mg tablet, delayed-release (Ecotrin) PO SCH (13:33)
[2017-11-14] MEDS: pantoprazole 40mg Tablet.DR PO SCH (13:33)
[2017-11-14] MEDS: docusate sod 100mg capsule PO SCH ×2 (13:33→19:28)
[2017-11-14] MEDS: folic acid 1mg tablet PO SCH (13:33)
[2017-11-14] MEDS: lactobacillus rhamnosus 10,000 MMU CELLS/CAPSULE PO SCH ×2 (13:33→19:27)
[2017-11-14] MEDS: atorvastatin 10mg tablet PO SCH (13:33)
[2017-11-14] MEDS: tamsulosin 0.4mg capsule PO SCH (13:33)
[2017-11-14] MEDS: pregabalin 75mg capsule PO SCH ×2 (13:33→19:33)
[2017-11-14] MEDS: dutasteride 0.5 MG capsule PO SCH (13:36)
[2017-11-15] VITALS (23 sets, daily range): BP systolic 98–167; BP diastolic 54–89
[2017-11-15 02:50] LABS: BASOPHILS % (AUTO) 0 % (0-1); EOSINOPHILS # (AUTO) 0.1 X10'3 (0-0.9); EOSINOPHILS % (AUTO) 1.1 % (0-6); HEMATOCRIT 24.2 % (42.0-52.0); HEMOGLOBIN 8.2 g/dl (14.0-17.9); LYMPHOCYTES # (AUTO) 0.4 X10'3 (1.1-4.8); LYMPHOCYTES % (AUTO) 5.1 % (21-51); MEAN CORPUSCULAR HEMOGLOBIN 30.4 PG (27.0-31.0); MEAN CORPUSCULAR HGB CONC 34.1 % (33.0-36.5); MEAN CORPUSCULAR VOLUME 89.3 FL (78-98); MEAN PLATELET VOLUME 9.4 FL (7.4-10.4); MONOCYTES # (AUTO) 1.1 X10'3 (0-0.9); MONOCYTES % (AUTO) 13.3 % (2-12); NEUTROPHILS # (AUTO) 6.9 X10'3 (1.8-7.7); NEUTROPHILS % (AUTO) 80.5 % (42-75); PLATELET COUNT 114 X10'3 (140-440); RED BLOOD COUNT 2.71 X10'6 (4.70-6.10); RED CELL DISTRIBUTION WIDTH 15.5 % (11.5-14.5); WHITE BLOOD COUNT 8.6 X10'3 (4.5-11.0)
[2017-11-15 03:17] LABS: ANION GAP 11 (8-16); BLOOD UREA NITROGEN 44 MG/DL (7-18); BUN/CREATININE RATIO 34.4 (5.4-32.0); CALCIUM 8.8 MG/DL (8.5-10.1); CHLORIDE 105 MMOL/L (99-107); CREATININE 1.28 MG/DL (0.60-1.10); GLUCOSE 110 MG/DL (70-104); MAGNESIUM 2.5 MG/DL (1.5-2.4); PHOSPHORUS 3.1 MG/DL (2.3-4.5); POTASSIUM 4.1 MMOL/L (3.5-5.1); SODIUM 140 MMOL/L (135-145); TOTAL CARBON DIOXIDE 23.6 MMOL/L (24-32); eGFR 54 ML/MIN
[2017-11-15] MEDS: HYDROcodone/acetaminophen 10/325mg tab PO PRN ×5 (04:13→22:14)
[2017-11-15] MEDS: potassium Cl 20mEq/100mL bag 100 ML IV PRN (04:21)
[2017-11-15] MEDS: allopurinol 100mg tablet PO SCH ×2 (08:31→19:36)
[2017-11-15] MEDS: metoprolol tartrate 25mg tablet PO SCH ×2 (08:31→19:36)
[2017-11-15] MEDS: dutasteride 0.5 MG capsule PO SCH (08:31)
[2017-11-15] MEDS: pantoprazole 40mg Tablet.DR PO SCH (08:33)
[2017-11-15] MEDS: atorvastatin 10mg tablet PO SCH (08:33)
[2017-11-15] MEDS: lactobacillus rhamnosus 10,000 MMU CELLS/CAPSULE PO SCH ×2 (08:34→19:36)
[2017-11-15] MEDS: pregabalin 75mg capsule PO SCH ×2 (08:34→20:00)
[2017-11-15] MEDS: folic acid 1mg tablet PO SCH (08:34)
[2017-11-15] MEDS: aspirin 325mg tablet, delayed-release (Ecotrin) PO SCH (08:34)
[2017-11-15] MEDS: tamsulosin 0.4mg capsule PO SCH (08:34)
[2017-11-15] MEDS: docusate sod 100mg capsule PO SCH ×2 (08:34→19:36)
[2017-11-15] MEDS ORDERED: amiodarone 150mg/dext, iso-os 100 ML IV ONE (09:40)
[2017-11-15] MEDS ORDERED: furosemide 40mg/4ml inj IV ONE (09:45)
[2017-11-15] MEDS: amiodarone/D5 360MG/200ML BAG 200 ML IV SCH ×2 (10:06→16:16)
[2017-11-15] MEDS: sodium chloride 0.45% 1,000 ML IV SCH (13:10)
[2017-11-15] MEDS: ondansetron/PF 4mg/2ml inj IV PRN ×2 (14:44→22:13)
[2017-11-16] VITALS (16 sets, daily range): BP systolic 115–164; BP diastolic 56–78
[2017-11-16] MEDS: amiodarone/D5 360MG/200ML BAG 200 ML IV SCH (01:05)
[2017-11-16 03:53] LABS: MAGNESIUM 2.4 MG/DL (1.5-2.4); PHOSPHORUS 3.8 MG/DL (2.3-4.5); POTASSIUM 3.9 MMOL/L (3.5-5.1)
[2017-11-16 05:31] LABS: ACTIVATED CLOTTING TIME 140 SEC (101-148)
[2017-11-16] MEDS: allopurinol 100mg tablet PO SCH (07:10)
[2017-11-16] MEDS: pantoprazole 40mg Tablet.DR PO SCH (07:10)
[2017-11-16] MEDS: folic acid 1mg tablet PO SCH (07:10)
[2017-11-16] MEDS: aspirin 325mg tablet, delayed-release (Ecotrin) PO SCH (07:10)
[2017-11-16] MEDS: dutasteride 0.5 MG capsule PO SCH (07:10)
[2017-11-16] MEDS: tamsulosin 0.4mg capsule PO SCH (07:10)
[2017-11-16] MEDS: docusate sod 100mg capsule PO SCH (07:10)
[2017-11-16] MEDS: metoprolol tartrate 25mg tablet PO SCH (07:10)
[2017-11-16] MEDS: atorvastatin 10mg tablet PO SCH (07:10)
[2017-11-16] MEDS: lactobacillus rhamnosus 10,000 MMU CELLS/CAPSULE PO SCH (07:11)
[2017-11-16] MEDS ORDERED: amiodarone 200mg tablet PO SCH (08:00)
[2017-11-16] MEDS: pregabalin 75mg capsule PO SCH (08:00)
[2017-11-16] MEDS: HYDROcodone/acetaminophen 10/325mg tab PO PRN ×2 (11:09→15:54)
== END 2017-11-16 16:21 | DRG 216 ==
LOC: ER 21:04 → ED HOLD 23:33 → PCU 3S 11-08 11:15 → CICU 2S 11-11 10:57
PROVIDERS: ADMIT Family Medicine; ATTEND Internal Medicine Critical Care Medicine
PROC: 4A023N7 Measurement of Cardiac Sampling and Pressure, Left Heart, Percutaneous Approach (ICD-10-PCS; principal; 2017-11-08)
PROC: B2111ZZ Fluoroscopy of Multiple Coronary Arteries using Low Osmolar Contrast (ICD-10-PCS; 2017-11-08)
PROC: B2151ZZ Fluoroscopy of Left Heart using Low Osmolar Contrast (ICD-10-PCS; 2017-11-08)
PROC: B41F1ZZ Fluoroscopy of Right Lower Extremity Arteries using Low Osmolar Contrast (ICD-10-PCS; 2017-11-08)
PROC: 02RF08Z Replacement of Aortic Valve with Zooplastic Tissue, Open Approach (ICD-10-PCS; 2017-11-11)
PROC: 02100Z9 Bypass Coronary Artery, One Artery from Left Internal Mammary, Open Approach (ICD-10-PCS; 2017-11-11)
PROC: 021209W Bypass Coronary Artery, Three Arteries from Aorta with Autologous Venous Tissue, Open Approach (ICD-10-PCS; 2017-11-11)
PROC: 06BP4ZZ Excision of Right Saphenous Vein, Percutaneous Endoscopic Approach (ICD-10-PCS; 2017-11-11)
PROC: 5A1945Z Respiratory Ventilation, 24-96 Consecutive Hours (ICD-10-PCS; 2017-11-11)
PROC: 05HM33Z Insertion of Infusion Device into Right Internal Jugular Vein, Percutaneous Approach (ICD-10-PCS; 2017-11-11)
PROC: 30233M1 Transfusion of Nonautologous Plasma Cryoprecipitate into Peripheral Vein, Percutaneous Approach (ICD-10-PCS; 2017-11-11)
PROC: 30233N1 Transfusion of Nonautologous Red Blood Cells into Peripheral Vein, Percutaneous Approach (ICD-10-PCS; 2017-11-11)
PROC: 30233R1 Transfusion of Nonautologous Platelets into Peripheral Vein, Percutaneous Approach (ICD-10-PCS; 2017-11-11)
PROC: B543ZZA Ultrasonography of Right Jugular Veins, Guidance (ICD-10-PCS; 2017-11-11)
PROC: 5A1221Z Performance of Cardiac Output, Continuous (ICD-10-PCS; 2017-11-11)
PROC: B24BZZ4 Ultrasonography of Heart with Aorta, Transesophageal (ICD-10-PCS; 2017-11-11)
PROC: 03HY32Z Insertion of Monitoring Device into Upper Artery, Percutaneous Approach (ICD-10-PCS; 2017-11-11)
PROC: 5A09357 Assistance with Respiratory Ventilation, Less than 24 Consecutive Hours, Continuous Positive Airway Pressure (ICD-10-PCS; 2017-11-14)
DX: I21.4 Non-ST elevation (NSTEMI) myocardial infarction (principal); J96.00 Acute respiratory failure, unspecified whether with hypoxia or hypercapnia; I48.91 Unspecified atrial fibrillation; E78.00 Pure hypercholesterolemia, unspecified; E87.6 Hypokalemia; R55 Syncope and collapse; E78.5 Hyperlipidemia, unspecified; N18.3 Chronic kidney disease, stage 3 (moderate); I08.0 Rheumatic disorders of both mitral and aortic valves; I12.9 Hypertensive chronic kidney disease with stage 1 through stage 4 chronic kidney disease, or unspecified chronic kidney disease; M10.9 Gout, unspecified; I25.10 Atherosclerotic heart disease of native coronary artery without angina pectoris; N40.0 Benign prostatic hyperplasia without lower urinary tract symptoms; Z79.899 Other long term (current) drug therapy; Z85.46 Personal history of malignant neoplasm of prostate; Z87.11 Personal history of peptic ulcer disease; Z80.0 Family history of malignant neoplasm of digestive organs; Z80.1 Family history of malignant neoplasm of trachea, bronchus and lung
CPT/HCPCS: 0232T; 93306; 93312; 93325; 93458; 99285; 36415; 36600; 70544; 70551; 71045; 71046; 80048; 80053; 80061; 82330; 82435; 82803; 82810; 82947; 82948; 83036; 83735; 83880; 84100; 84132; 84295; 84484; 85018; 85025; 85027; 85347; 85384; 85610; 85730; 86885; 86900; 86901; 86920; 87070; 88300; 93005; 93308; 93880; 93970; 94002; 94003; 94660; 94760; 97110; 97116; 97162; 97530; 99152; 99153; A4620; A6212; A6213; A6257; A6258; A6402; A6449; A7000; A7048; C1751; C1760; C1769; J0282; J0461; J0690; J1100; J1200; J1630; J1644; J1815; J1885; J1940; J2001; J2060; J2150; J2250; J2270; J2370; J2405; J2440; J2704; J2720; J2930; J3370; J3411; J3480; J3490; J7030; J7060; J7120; P9012; P9016; P9035; P9045; P9047; Q9967

== ENCOUNTER 2017-11-17 21:56 | Emergency (ER) | payer MEDICARE, MEDICAID ==
[~2017-11-17] VITALS: Ht 160 cm; Wt 70.3 kg
[~2017-11-17 21:56] MED LIST: ALLO100T PO; CLON0.1T PO; CYCL-394 PO; FLO0.4C PO; FURO-150 PO; GABA-532; HYDR-3965 PO
[2017-11-17] MEDS ORDERED: normal saline 1000ML IV soln IVB ONE (22:55)
[2017-11-17 23:26] LABS: BASOPHILS % (AUTO) 0.1 % (0-1); EOSINOPHILS # (AUTO) 0.3 X10'3 (0-0.9); EOSINOPHILS % (AUTO) 2.3 % (0-6); HEMATOCRIT 26.9 % (42.0-52.0); HEMOGLOBIN 9.1 g/dl (14.0-17.9); LYMPHOCYTES # (AUTO) 0.8 X10'3 (1.1-4.8); LYMPHOCYTES % (AUTO) 6.7 % (21-51); MEAN CORPUSCULAR HEMOGLOBIN 30.7 PG (27.0-31.0); MEAN CORPUSCULAR VOLUME 90.3 FL (78-98); MONOCYTES # (AUTO) 1.5 X10'3 (0-0.9); MONOCYTES % (AUTO) 13.1 % (2-12); NEUTROPHILS % (AUTO) 77.8 % (42-75); PLATELET COUNT 215 X10'3 (140-440); RED BLOOD COUNT 2.98 X10'6 (4.70-6.10); RED CELL DISTRIBUTION WIDTH 15.7 % (11.5-14.5); WHITE BLOOD COUNT 11.6 X10'3 (4.5-11.0)
[2017-11-17 23:37] LABS: INR 1.1 INR; PARTIAL THROMBOPLASTIN TIME 30 SECONDS (22-32); PROTHROMBIN TIME 11.8 SECONDS (9.0-12.0)
[2017-11-17 23:44] LABS: TOTAL CELLS COUNTED 100
[2017-11-17 23:46] LABS: ANISOCYTOSIS 1+; PLATELET ESTIMATE NORMAL
[2017-11-17 23:48] LABS: ALANINE AMINOTRANSFERASE 22 U/L (12-78); ALBUMIN 2.8 G/DL (3.4-5.0); ALBUMIN/GLOBULIN RATIO 0.8 (1.1-1.5); ALKALINE PHOSPHATASE 97 IU/L (46-116); ANION GAP 9 (8-16); ASPARTATE AMINO TRANSFERASE 25 U/L (10-37); BILIRUBIN,TOTAL 0.7 MG/DL (0.1-1.0); BLOOD UREA NITROGEN 41 MG/DL (7-18); BUN/CREATININE RATIO 25.8 (5.4-32.0); CALCIUM 8.6 MG/DL (8.5-10.1); CHLORIDE 104 MMOL/L (99-107); CREATININE 1.59 MG/DL (0.60-1.10); GLUCOSE 161 MG/DL (70-104); MAGNESIUM 2.1 MG/DL (1.5-2.4); POTASSIUM 3.9 MMOL/L (3.5-5.1); SODIUM 139 MMOL/L (135-145); TOTAL PROTEIN 6.1 G/DL (6.4-8.2); eGFR 42 ML/MIN
[2017-11-18] MEDS ORDERED: iohexol 350MG/ML 100ml bottle IV ONE (00:34)
[2017-11-18 02:00] LABS: CLARITY,URINE CLEAR (Clear); COLOR,URINE YELLOW (Yellow); GLUCOSE, URINE NEGATIVE (Neg); KETONES,URINE NEGATIVE (Neg); LEUKOCYTE ESTERASE ,URINE NEGATIVE (Neg); NITRITES, URINE NEGATIVE (Neg); OCCULT BLOOD,URINE TRACE-INTACT (Neg); PH,URINE 5.5 (4.8-8.0); PROTEIN,URINE NEGATIVE (Neg); UROBILINOGEN,URINE 0.2 E.U/dL (0.2-1.0)
[2017-11-18 02:06] LABS: UA COLLECTION TYPE CLN CATCH MIDSTREAM
[2017-11-18 02:09] LABS: BACTERIA,URINE NONE SEEN /HPF (Neg); MUCUS STRANDS NONE SEEN /LPF (Neg); RBC,URINE 0-2 /HPF (0-2); SQUAMOUS EPITHELIAL CELL,UR FEW /LPF (FEW); WBC,URINE NONE SEEN /HPF (0-4)
[2017-11-18] MEDS ORDERED: normal saline 1000ML IV soln IVB ONE (02:15)
[2017-11-18] MEDS ORDERED: metoprolol tartrate 1mg/ml inj IV ONE (02:15)
[2017-11-18 03:36] VITALS: BP 101/61
[2017-11-18] MEDS ORDERED: adenosine 3mg/ml 2ml vial IV ONE ×2 (03:55)
[2017-11-18] MEDS ORDERED: HYDROcodone/acetaminophen 10/325mg tab PO ONE (04:35)
[2017-11-18] MEDS ORDERED: METO-467 PO (04:37)
== END 2017-11-18 05:40 | disposition home or self-care (01) ==
LOC: ER 21:56
DX: R00.0 Tachycardia, unspecified (principal); J90 Pleural effusion, not elsewhere classified; R11.0 Nausea; R07.9 Chest pain, unspecified; I25.10 Atherosclerotic heart disease of native coronary artery without angina pectoris; I10 Essential (primary) hypertension; E78.00 Pure hypercholesterolemia, unspecified; Z95.1 Presence of aortocoronary bypass graft; Z79.899 Other long term (current) drug therapy
CPT/HCPCS: 36415; 71045; 71275; 80053; 81001; 83735; 83880; 85025; 85610; 85730; 93005; 96374; 96375; 99285; J0153; J3490; J7030; Q9967

== ENCOUNTER 2017-11-20 08:54 | Emergency (ER) | payer MEDICARE, MEDICAID ==
[~2017-11-20] VITALS: Ht 160 cm; Wt 72.7 kg
[~2017-11-20 08:54] MED LIST changes: +METO-467 PO
[2017-11-20] MEDS ORDERED: furosemide 40mg/4ml inj IV ONE (09:00)
[2017-11-20 09:16] LABS: BASOPHILS % (AUTO) 0.1 % (0-1); EOSINOPHILS # (AUTO) 0.2 X10'3 (0-0.9); EOSINOPHILS % (AUTO) 1.2 % (0-6); HEMATOCRIT 27.4 % (42.0-52.0); HEMOGLOBIN 9.3 g/dl (14.0-17.9); LYMPHOCYTES # (AUTO) 0.4 X10'3 (1.1-4.8); LYMPHOCYTES % (AUTO) 3.4 % (21-51); MEAN CORPUSCULAR HEMOGLOBIN 30.6 PG (27.0-31.0); MEAN PLATELET VOLUME 7.8 FL (7.4-10.4); MONOCYTES % (AUTO) 7.4 % (2-12); NEUTROPHILS # (AUTO) 11.5 X10'3 (1.8-7.7); NEUTROPHILS % (AUTO) 87.9 % (42-75); PLATELET COUNT 266 X10'3 (140-440); RED BLOOD COUNT 3.04 X10'6 (4.70-6.10); RED CELL DISTRIBUTION WIDTH 15.6 % (11.5-14.5); WHITE BLOOD COUNT 13.1 X10'3 (4.5-11.0)
[2017-11-20 09:25] LABS: PROTHROMBIN TIME 10.7 SECONDS (9.0-12.0)
[2017-11-20 09:39] LABS: ALANINE AMINOTRANSFERASE 22 U/L (12-78); ALBUMIN 2.9 G/DL (3.4-5.0); ALBUMIN/GLOBULIN RATIO 0.7 (1.1-1.5); ALKALINE PHOSPHATASE 103 IU/L (46-116); ANION GAP 10 (8-16); ASPARTATE AMINO TRANSFERASE 30 U/L (10-37); BILIRUBIN,TOTAL 1.3 MG/DL (0.1-1.0); BLOOD UREA NITROGEN 34 MG/DL (7-18); CALCIUM 8.9 MG/DL (8.5-10.1); CHLORIDE 106 MMOL/L (99-107); CREATININE 1.48 MG/DL (0.60-1.10); GLUCOSE 123 MG/DL (70-104); POTASSIUM 3.4 MMOL/L (3.5-5.1); SODIUM 143 MMOL/L (135-145); TOTAL CARBON DIOXIDE 26.7 MMOL/L (24-32); TOTAL PROTEIN 7.2 G/DL (6.4-8.2); eGFR 46 ML/MIN
[2017-11-20 14:16] VITALS: BP 167/87
== END 2017-11-20 14:10 ==
LOC: ER 08:54
DX: I11.0 Hypertensive heart disease with heart failure (principal); I50.9 Heart failure, unspecified; I48.91 Unspecified atrial fibrillation; I25.10 Atherosclerotic heart disease of native coronary artery without angina pectoris; E78.00 Pure hypercholesterolemia, unspecified; I25.2 Old myocardial infarction; Z95.1 Presence of aortocoronary bypass graft; Z95.2 Presence of prosthetic heart valve; Z79.899 Other long term (current) drug therapy
CPT/HCPCS: 36415; 71045; 80053; 83735; 83880; 85025; 85610; 93005; 96374; 99285; J1940

== ENCOUNTER 2022-05-02 11:58 | Day surgery (SDC) | payer OTHER, MEDICAID ==
[~2022-05-02] VITALS: Ht 160 cm; Wt 69.5 kg
[~2022-05-02 11:58] MED LIST changes: +ATOR20TA12 PO; -CLON0.1T PO; -CYCL-394 PO; -GABA-532; -HYDR-3965 PO; +HYPR15DR4 EACHEYE; -METO-467 PO; +METO-539 PO; +OMEP40CA21 PO; +SILD100T PO
[2022-05-02 12:20] VITALS: BP 154/66
[2022-05-02] MEDS ORDERED: iohexol 300mg/ml 100ml inj. ONE (13:07)
[2022-05-02] MEDS ORDERED: POTA-205 PO (13:38)
[2022-05-02] MEDS ORDERED: METR-159 PO (13:38)
[2022-05-02] MEDS ORDERED: HYDR-3972 PO (13:38)
[2022-05-02] MEDS ORDERED: CIPR-259 PO (13:38)
[2022-05-02] MEDS ORDERED: LACT1CAP55 PO (13:38)
[2022-05-02] MEDS ORDERED: ASPI-611 PO (13:38)
[2022-05-02] MEDS ORDERED: NYST15PO4 TOP (13:38)
--- NOTE | 2022-05-02 14:20 | NUR ---
Dr. Christy at bedside with Genia whittington RN. CT plan is to flush the VICTOR HUGO drain. Upon assessment noticed the stop cock was not fully open and the VICTOR HUGO drain was not squeezed with topper lid intact. Once he opened stop cock with VICTOR HUGO drain squeezed and lid intact he noticed it draining. Dr. Christy decided to not remove drain since there is still fluid to drain. Procedure was not performed today and patient is okay to be discharged back to [facility] post acute.
== END 2022-05-02 15:00 | disposition home or self-care (01) ==
LOC: SSTAY O 11:58
PROVIDERS: ATTEND Radiology Diagnostic Radiology
DX: K75.0 Abscess of liver (principal); Z48.03 Encounter for change or removal of drains; N32.89 Other specified disorders of bladder; L90.5 Scar conditions and fibrosis of skin; I51.7 Cardiomegaly; I70.0 Atherosclerosis of aorta; J98.11 Atelectasis; Z79.899 Other long term (current) drug therapy; Z98.890 Other specified postprocedural states
CPT/HCPCS: 74177; J3490; Q9967; A4421; A6258; A6449

== ENCOUNTER 2022-05-29 11:41 | Day surgery (SDC) | payer MEDICAID, OTHER ==
[~2022-05-29 11:41] MED LIST changes: +ASPI-611 PO; +CIPR-259 PO; +HYDR-3972 PO; +LACT1CAP55 PO; +METR-159 PO; +NYST15PO4 TOP; -OMEP40CA21 PO; +POTA-205 PO
--- NOTE | 2022-05-29 12:30 | NUR ---
Pt VICTOR HUGO drain removed by IR and dressing placed, CDI. Pt returning back to [facility] via [facility] in a wheelchair. Given dc instructions. Time in the short stay unit was about 15 minutes.
== END 2022-05-29 12:30 ==
LOC: SSTAY O 11:41
PROVIDERS: ATTEND Radiology Vascular & Interventional Radiology
DX: Z48.03 Encounter for change or removal of drains (principal); K75.0 Abscess of liver
CPT/HCPCS: A6258; A6449

== ENCOUNTER 2022-07-14 00:09 | Inpatient (IN) | payer MEDICARE, MEDICAID, OTHER ==
[~2022-07-14] VITALS: Ht 160 cm; Wt 64.1 kg
[2022-07-14] MEDS ORDERED: LIDOcaine 2% 10ml TOPICAL JELLY (Urojet) TP ONE (00:45)
[2022-07-14 01:24] LABS: CLARITY,URINE TURBID (Clear); COLOR,URINE RED (Yellow); UA COLLECTION TYPE FOLEY CATH
[2022-07-14 01:30] LABS: RBC,URINE TNTC /HPF (0-2)
[2022-07-14 01:31] LABS: BACTERIA,URINE 1+ /HPF (Neg); SQUAMOUS EPITHELIAL CELL,UR NONE SEEN /LPF (FEW)
[2022-07-14 01:45] LABS: BASOPHILS % (AUTO) 0.3 % (0-1); EOSINOPHILS % (AUTO) 0.1 % (0-6); HEMATOCRIT 33.7 % (42.0-52.0); HEMOGLOBIN 11.2 g/dl (14.0-17.9); LYMPHOCYTES # (AUTO) 0.4 X10'3 (1.1-4.8); LYMPHOCYTES % (AUTO) 3.4 % (21-51); MEAN CORPUSCULAR HEMOGLOBIN 31.5 PG (27.0-31.0); MEAN CORPUSCULAR HGB CONC 33.2 g/dL (33.0-36.5); MEAN CORPUSCULAR VOLUME 94.9 FL (78-98); MEAN PLATELET VOLUME 8.4 FL (7.4-10.4); MONOCYTES # (AUTO) 0.8 X10'3 (0-0.9); MONOCYTES % (AUTO) 6.7 % (2-12); NEUTROPHILS # (AUTO) 10.4 X10'3 (1.8-7.7); NEUTROPHILS % (AUTO) 89.5 % (42-75); PLATELET COUNT 224 X10'3 (140-440); RED BLOOD COUNT 3.55 X10'6 (4.70-6.10); RED CELL DISTRIBUTION WIDTH 14.2 % (11.5-14.5); WHITE BLOOD COUNT 11.6 X10'3 (4.5-11.0)
[2022-07-14 01:58] LABS: ALANINE AMINOTRANSFERASE 35 U/L (12-78); ALBUMIN 3.1 G/DL (3.4-5.0); ALBUMIN/GLOBULIN RATIO 0.8 (1.1-1.5); ALKALINE PHOSPHATASE 102 IU/L (46-116); ANION GAP 15 (8-16); ASPARTATE AMINO TRANSFERASE 24 U/L (10-37); BILIRUBIN,TOTAL 0.4 MG/DL (0.1-1.0); BLOOD UREA NITROGEN 40 MG/DL (7-18); BUN/CREATININE RATIO 18.3 (5.4-32.0); CHLORIDE 101 MMOL/L (99-107); CREATININE 2.18 MG/DL (0.60-1.10); GLUCOSE 229 MG/DL (70-104); POTASSIUM 3.3 MMOL/L (3.5-5.1); SODIUM 136 MMOL/L (135-145); TOTAL CARBON DIOXIDE 20.3 MMOL/L (24-32); eGFR 29 ML/MIN
[2022-07-14] MEDS ORDERED: normal saline 1000ML IV soln IVB ONE (02:05)
[2022-07-14] MEDS ORDERED: CefTRIAXone/D5W-Rocephin 1gm 50 ML IV ONE (02:05)
[2022-07-14] MEDS ORDERED: mag hydrox/Alum hydrox/simeth 30ml oral suspension PO PRN (02:30)
[2022-07-14] MEDS ORDERED: potassium Cl 40MEQ/1/2NS 520ml 520 ML IV PRN (02:30)
[2022-07-14] MEDS ORDERED: magnesium hydroxide 30ml (MOM) UD suspension PO PRN (02:30)
[2022-07-14] MEDS ORDERED: morphine 2 MG/ML inj. syringe IV PRN ×2 (02:30)
[2022-07-14] MEDS ORDERED: diphenhydrAMINE 25mg capsule PO PRN (02:30)
[2022-07-14] MEDS ORDERED: acetaminophen 650mg rectal suppository RC PRN (02:30)
[2022-07-14] MEDS ORDERED: HYDROcodone/acetaminophen 5mg/325mg tablet PO PRN (02:30)
[2022-07-14] MEDS ORDERED: potassium cl 20mEq in 1/2 NS 1,000 ML IV SCH (02:30)
[2022-07-14] MEDS ORDERED: acetaminophen 325mg tablet PO PRN ×2 (02:30)
[2022-07-14] MEDS ORDERED: ondansetron/PF 4mg/2ml inj IV PRN (02:30)
[2022-07-14] MEDS ORDERED: ondansetron 4mg rapidly disintigrating tab PO PRN (02:30)
[2022-07-14] MEDS ORDERED: diphenhydrAMINE 50 mg/ml inj IV PRN (02:30)
[2022-07-14] MEDS ORDERED: potassium Cl 20 mEq SR tablet PO PRN ×2 (02:30)
[2022-07-14] MEDS ORDERED: bisacodyl 10mg suppository rectal RC PRN (02:30)
--- NOTE | 2022-07-14 03:14 | NUR ---
pt moved to hospital bed, amb with min assist. No beds available upstairs, pt to remain in ER, palafox continues to drain dark red fluid and leaking around catheter. Depends was changed, had moderate amount of red fluid in diaper, pt c/o pain to penis off and on, and need to urinate
[2022-07-14] MEDS: HYDROcodone/acetaminophen 10/325mg tab PO PRN ×2 (03:53→14:04)
--- NOTE | 2022-07-14 04:05 | NUR ---
emptied palafox of 1000ml dark red fluid, pt is resting quietly on bed, very talkative, Dr Ambrocio aware palafox still draining dark red urine. Pt c/o chronic neck pain, medicated per order
[2022-07-14 04:12] LABS: HEMOGLOBIN A1C 6.2 % (4.5-6.2)
[2022-07-14 04:21] LABS: PHOSPHORUS 2.8 MG/DL (2.3-4.5); POTASSIUM 3.6 MMOL/L (3.5-5.1)
[2022-07-14 04:25] LABS: APTT 27 SECONDS (22-32)
--- NOTE | 2022-07-14 06:37 | NUR ---
report from baldev lara for continuation of care. pt is ao4 awake hard of hearing. resp even unlabored. iv site clean patent intact. 100 ml/hr k 1/2 ns infusing. approx 350ml dark bloody urine noted in palafox. pt states no pain. skin w/d/i pink.
[2022-07-14] MEDS: docusate sod 100mg capsule PO SCH ×2 (08:00→20:09)
[2022-07-14] MEDS ORDERED: CefTRIAXone/D5W-Rocephin 1gm 50 ML IV SCH (08:00)
[2022-07-14 09:07] LABS: BASOPHILS # (AUTO) 0.1 X10'3 (0-0.2); BASOPHILS % (AUTO) 0.5 % (0-1); EOSINOPHILS % (AUTO) 0.2 % (0-6); HEMOGLOBIN 10.8 g/dl (14.0-17.9); LYMPHOCYTES # (AUTO) 1.1 X10'3 (1.1-4.8); LYMPHOCYTES % (AUTO) 9.4 % (21-51); MEAN CORPUSCULAR HEMOGLOBIN 31.4 PG (27.0-31.0); MEAN CORPUSCULAR HGB CONC 32.7 g/dL (33.0-36.5); MEAN CORPUSCULAR VOLUME 96.1 FL (78-98); MEAN PLATELET VOLUME 8.9 FL (7.4-10.4); MONOCYTES # (AUTO) 1.1 X10'3 (0-0.9); MONOCYTES % (AUTO) 9.6 % (2-12); NEUTROPHILS # (AUTO) 9.3 X10'3 (1.8-7.7); NEUTROPHILS % (AUTO) 80.3 % (42-75); PLATELET COUNT 229 X10'3 (140-440); RED BLOOD COUNT 3.43 X10'6 (4.70-6.10); RED CELL DISTRIBUTION WIDTH 14.7 % (11.5-14.5); WHITE BLOOD COUNT 11.5 X10'3 (4.5-11.0)
[2022-07-14] MEDS: pantoprazole 40mg Tablet.DR PO SCH (09:26)
[2022-07-14] MEDS ORDERED: LACT1TAB11 PO (09:32)
[2022-07-14 09:51] LABS: ALANINE AMINOTRANSFERASE 34 U/L (12-78); ALBUMIN 3.2 G/DL (3.4-5.0); ALKALINE PHOSPHATASE 96 IU/L (46-116); ANION GAP 13 (8-16); ASPARTATE AMINO TRANSFERASE 33 U/L (10-37); BILIRUBIN,TOTAL 0.3 MG/DL (0.1-1.0); BLOOD UREA NITROGEN 39 MG/DL (7-18); BUN/CREATININE RATIO 21.7 (5.4-32.0); CALCIUM 9.1 MG/DL (8.5-10.1); CHLORIDE 103 MMOL/L (99-107); GLUCOSE 110 MG/DL (70-104); POTASSIUM 4.3 MMOL/L (3.5-5.1); SODIUM 140 MMOL/L (135-145); TOTAL CARBON DIOXIDE 23.6 MMOL/L (24-32); TOTAL PROTEIN 6.4 G/DL (6.4-8.2); eGFR 36 ML/MIN
[2022-07-14] MEDS: K and/or MAG REPLACEMENT MC SCH ×2 (10:52→10:55)
--- NOTE | 2022-07-14 10:52 | NUR ---
Patient in room ED 10. I have received report from HELEN AVENDANO FROM ER and had the opportunity to ask questions and assume patient care.
--- NOTE | 2022-07-14 10:55 | NUR ---
report called to baldev joyce for continuation of care.
[2022-07-14] MEDS ORDERED: LIDOcaine 2% 10ml TOPICAL JELLY (Urojet) MM ONE ×2 (13:50→17:35)
[2022-07-14 15:09] LABS: HEMATOCRIT 30.9 % (42.0-52.0); HEMOGLOBIN 10.2 g/dl (14.0-17.9); MEAN CORPUSCULAR HEMOGLOBIN 31.3 PG (27.0-31.0); MEAN CORPUSCULAR VOLUME 94.6 FL (78-98); MEAN PLATELET VOLUME 8.4 FL (7.4-10.4); PLATELET COUNT 218 X10'3 (140-440); RED BLOOD COUNT 3.27 X10'6 (4.70-6.10); RED CELL DISTRIBUTION WIDTH 14.2 % (11.5-14.5); WHITE BLOOD COUNT 10.1 X10'3 (4.5-11.0)
[2022-07-14] MEDS ORDERED: TORS20TA3 PO (16:09)
[2022-07-14] MEDS: normal saline 1000ml 1,000 ML IV SCH (17:45)
[2022-07-14 18:40] VITALS: BP 110/52
--- NOTE | 2022-07-14 19:07 | NUR ---
DR SHAHRIAR LUCERO A CBI STARTED Addendum: 07/14/22 at 1908 by Melanie English RN Amended: Links added.
--- NOTE | 2022-07-14 19:09 | NUR ---
PATIENT DID NOT SEEM TO TOLERATE CBI, DR BESS WANTS A 20 [place] PLACED INSTEAD Addendum: 07/14/22 at 1910 by Melanie English RN Amended: Links added.
[2022-07-14] MEDS ORDERED: HYDROmorphone 1 mg/ml syringe IV PRN (19:15)
[2022-07-14] MEDS ORDERED: HYDROmorphone inj. 0.5 MG/0.5 ML DISP.SYRIN IV PRN (19:15)
--- NOTE | 2022-07-14 19:15 | NUR ---
Problems reprioritized. Patient report given, questions answered & plan of care reviewed with HELEN SOLANO.
[2022-07-14] MEDS ORDERED: SILDENAFIL CITRATE PO PRN (19:20)
[2022-07-14] MEDS: TORSEMIDE PO SCH (20:00)
[2022-07-14 20:02] LABS: HEMATOCRIT 30.3 % (42.0-52.0); HEMOGLOBIN 10.3 g/dl (14.0-17.9); MEAN CORPUSCULAR HGB CONC 33.8 g/dL (33.0-36.5); MEAN CORPUSCULAR VOLUME 94.7 FL (78-98); MEAN PLATELET VOLUME 8.1 FL (7.4-10.4); PLATELET COUNT 227 X10'3 (140-440); RED CELL DISTRIBUTION WIDTH 14.4 % (11.5-14.5); WHITE BLOOD COUNT 9.5 X10'3 (4.5-11.0)
[2022-07-14] MEDS: oxybutynin 5mg tablet PO SCH (20:09)
[2022-07-14] MEDS: lactobacillus rhamnosus 10,000 MMU CELLS/CAPSULE PO SCH (20:09)
[2022-07-14] MEDS: CefTRIAXone/D5W-Rocephin 1gm 50 ML IV SCH (20:09)
[2022-07-14] MEDS: atorvastatin 20mg tablet PO SCH (20:10)
[2022-07-14] MEDS: tamsulosin 0.4mg capsule PO SCH (20:10)
[2022-07-14] MEDS ORDERED: temazepam 15mg capsule PO PRN (21:00)
[2022-07-14 22:00] VITALS: BP 137/59
[2022-07-14] MEDS: hypromellose ophthalmic drops EACHEYE SCH (22:50)
[2022-07-14] MEDS: allopurinol 100mg tablet PO SCH (22:59)
[2022-07-14] MEDS ORDERED: HYDROmorphone inj. 0.5 MG/0.5 ML DISP.SYRIN IV ONE (23:15)
[2022-07-15] MEDS: HYDROcodone/acetaminophen 10/325mg tab PO PRN (00:51)
[2022-07-15] MEDS ORDERED: CefTRIAXone/D5W-Rocephin 1gm 50 ML IV SCH (02:00)
[2022-07-15 02:11] LABS: BASOPHILS % (AUTO) 0.6 % (0-1); EOSINOPHILS # (AUTO) 0.2 X10'3 (0-0.9); EOSINOPHILS % (AUTO) 2.4 % (0-6); HEMATOCRIT 28.3 % (42.0-52.0); HEMOGLOBIN 9.3 g/dl (14.0-17.9); LYMPHOCYTES # (AUTO) 1.3 X10'3 (1.1-4.8); LYMPHOCYTES % (AUTO) 15.8 % (21-51); MEAN CORPUSCULAR HGB CONC 32.8 g/dL (33.0-36.5); MEAN CORPUSCULAR VOLUME 94.6 FL (78-98); MEAN PLATELET VOLUME 8.3 FL (7.4-10.4); MONOCYTES % (AUTO) 11.8 % (2-12); NEUTROPHILS # (AUTO) 5.9 X10'3 (1.8-7.7); NEUTROPHILS % (AUTO) 69.4 % (42-75); PLATELET COUNT 204 X10'3 (140-440); RED BLOOD COUNT 2.99 X10'6 (4.70-6.10); RED CELL DISTRIBUTION WIDTH 14.5 % (11.5-14.5); WHITE BLOOD COUNT 8.5 X10'3 (4.5-11.0)
[2022-07-15 02:24] LABS: ALANINE AMINOTRANSFERASE 18 U/L (12-78); ALBUMIN 2.5 G/DL (3.4-5.0); ALBUMIN/GLOBULIN RATIO 0.7 (1.1-1.5); ALKALINE PHOSPHATASE 76 IU/L (46-116); ANION GAP 7 (8-16); ASPARTATE AMINO TRANSFERASE 17 U/L (10-37); BILIRUBIN,TOTAL 0.3 MG/DL (0.1-1.0); BLOOD UREA NITROGEN 25 MG/DL (7-18); BUN/CREATININE RATIO 18.7 (5.4-32.0); CALCIUM 8.4 MG/DL (8.5-10.1); CHLORIDE 107 MMOL/L (99-107); CHOL/HDL RATIO 2.7 (0.00-4.99); CHOLESTEROL 110 MG/DL (0-200); CREATININE 1.34 MG/DL (0.60-1.10); GLUCOSE 106 MG/DL (70-104); HDL CHOLESTEROL 41 MG/DL (35-60); LDL CHOLESTEROL 54 MG/DL (50-100); POTASSIUM 3.5 MMOL/L (3.5-5.1); SODIUM 138 MMOL/L (135-145); TOTAL CARBON DIOXIDE 23.6 MMOL/L (24-32); TOTAL PROTEIN 5.9 G/DL (6.4-8.2); TRIGLYCERIDES 70 MG/DL (20-135); eGFR 51 ML/MIN
[2022-07-15] MEDS: normal saline 1000ml 1,000 ML IV SCH ×2 (03:38→09:25)
[2022-07-15 06:00] VITALS: BP 136/72
--- NOTE | 2022-07-15 06:40 | NUR ---
Problems reprioritized. Patient report given, questions answered & plan of care reviewed with ZAAM. Addendum: 07/15/22 at 0640 by Miguel Dash RN Amended: Links added.
--- NOTE | 2022-07-15 06:52 | NUR ---
Patient in room [facility] 349A. I have received report from HELEN SOLANO and had the opportunity to ask questions and assume patient care.
[2022-07-15] MEDS: pantoprazole 40mg Tablet.DR PO SCH (07:30)
[2022-07-15] MEDS: docusate sod 100mg capsule PO SCH ×2 (08:00→20:00)
[2022-07-15] MEDS: K and/or MAG REPLACEMENT MC SCH ×2 (08:00→19:12)
[2022-07-15 09:13] LABS: HEMATOCRIT 29.4 % (42.0-52.0); HEMOGLOBIN 9.9 g/dl (14.0-17.9); MEAN CORPUSCULAR HEMOGLOBIN 31.9 PG (27.0-31.0); MEAN CORPUSCULAR HGB CONC 33.6 g/dL (33.0-36.5); MEAN PLATELET VOLUME 8.8 FL (7.4-10.4); PLATELET COUNT 193 X10'3 (140-440); RED CELL DISTRIBUTION WIDTH 14.3 % (11.5-14.5); WHITE BLOOD COUNT 7.9 X10'3 (4.5-11.0)
[2022-07-15] MEDS: CefTRIAXone/D5W-Rocephin 1gm 50 ML IV SCH (09:24)
[2022-07-15] MEDS: oxybutynin 5mg tablet PO SCH ×3 (09:24→20:25)
[2022-07-15] MEDS: lactobacillus rhamnosus 10,000 MMU CELLS/CAPSULE PO SCH ×2 (09:25→20:25)
[2022-07-15] MEDS: TORSEMIDE PO SCH ×2 (09:25→20:00)
[2022-07-15] MEDS: allopurinol 100mg tablet PO SCH (09:25)
[2022-07-15] MEDS: metoprolol succinate 25mg (24-HOUR) SR. Tablet PO SCH (09:25)
[2022-07-15 11:00] VITALS: BP 120/50
[2022-07-15 15:12] LABS: HEMATOCRIT 30.8 % (42.0-52.0); HEMOGLOBIN 10.3 g/dl (14.0-17.9); MEAN CORPUSCULAR HEMOGLOBIN 31.9 PG (27.0-31.0); MEAN CORPUSCULAR HGB CONC 33.4 g/dL (33.0-36.5); MEAN CORPUSCULAR VOLUME 95.3 FL (78-98); MEAN PLATELET VOLUME 8.3 FL (7.4-10.4); PLATELET COUNT 225 X10'3 (140-440); RED BLOOD COUNT 3.24 X10'6 (4.70-6.10); RED CELL DISTRIBUTION WIDTH 14.7 % (11.5-14.5); WHITE BLOOD COUNT 9.6 X10'3 (4.5-11.0)
[2022-07-15 17:28] VITALS: BP_SYST 103; BP_SYST 104; BP_SYST 113; BP_DIAS 45; BP_DIAS 49; BP_DIAS 57
[2022-07-15 18:00] VITALS: BP 104/57
--- NOTE | 2022-07-15 18:47 | NUR ---
Problems reprioritized. Patient report given, questions answered & plan of care reviewed with SHERRY Nash RN.
[2022-07-15] MEDS: hypromellose ophthalmic drops EACHEYE SCH (20:24)
[2022-07-15] MEDS: atorvastatin 20mg tablet PO SCH (20:25)
[2022-07-15] MEDS: tamsulosin 0.4mg capsule PO SCH (20:25)
[2022-07-15 20:54] LABS: HEMATOCRIT 26.1 % (42.0-52.0); HEMOGLOBIN 8.7 g/dl (14.0-17.9); MEAN CORPUSCULAR HEMOGLOBIN 31.6 PG (27.0-31.0); MEAN CORPUSCULAR HGB CONC 33.5 g/dL (33.0-36.5); MEAN CORPUSCULAR VOLUME 94.4 FL (78-98); MEAN PLATELET VOLUME 8.4 FL (7.4-10.4); PLATELET COUNT 205 X10'3 (140-440); RED BLOOD COUNT 2.77 X10'6 (4.70-6.10); RED CELL DISTRIBUTION WIDTH 14.4 % (11.5-14.5); WHITE BLOOD COUNT 8.1 X10'3 (4.5-11.0)
--- NOTE | 2022-07-15 21:45 | NUR ---
Pt refused at this time to have his orthostatic vital signs taken as they were taken on day shift and patient felt they were fine. [place] patient request at this time.
[2022-07-15 22:00] VITALS: BP 127/63
--- NOTE | 2022-07-15 22:30 | NUR ---
Pt request IV to be looked at as he felt something wet on his bed. IV site to right hand was assessed and re-dressed. no leaking was noted when IV was flushed. Will continue to monitor.
[2022-07-16] MEDS: normal saline 1000ml 1,000 ML IV SCH ×3 (00:03→21:32)
[2022-07-16 06:00] VITALS: BP 121/46
[2022-07-16 06:42] LABS: HEMATOCRIT 26.8 % (42.0-52.0); HEMOGLOBIN 8.9 g/dl (14.0-17.9); MEAN CORPUSCULAR HEMOGLOBIN 31.6 PG (27.0-31.0); MEAN CORPUSCULAR VOLUME 94.6 FL (78-98); RED BLOOD COUNT 2.83 X10'6 (4.70-6.10); WHITE BLOOD COUNT 7.4 X10'3 (4.5-11.0)
[2022-07-16 06:43] LABS: BASOPHILS % (AUTO) 0.6 % (0-1); EOSINOPHILS # (AUTO) 0.3 X10'3 (0-0.9); EOSINOPHILS % (AUTO) 3.7 % (0-6); LYMPHOCYTES # (AUTO) 1.2 X10'3 (1.1-4.8); LYMPHOCYTES % (AUTO) 15.9 % (21-51); MEAN CORPUSCULAR HGB CONC 33.4 g/dL (33.0-36.5); MEAN PLATELET VOLUME 8.5 FL (7.4-10.4); MONOCYTES # (AUTO) 0.8 X10'3 (0-0.9); MONOCYTES % (AUTO) 10.4 % (2-12); NEUTROPHILS # (AUTO) 5.2 X10'3 (1.8-7.7); NEUTROPHILS % (AUTO) 69.4 % (42-75); PLATELET COUNT 211 X10'3 (140-440)
--- NOTE | 2022-07-16 06:48 | NUR ---
Patient in room [facility] 349. I have received report from Ashley CERVANTES and had the opportunity to ask questions and assume patient care.
[2022-07-16 07:03] LABS: ALANINE AMINOTRANSFERASE 20 U/L (12-78); ALBUMIN 2.2 G/DL (3.4-5.0); ALBUMIN/GLOBULIN RATIO 0.6 (1.1-1.5); ALKALINE PHOSPHATASE 69 IU/L (46-116); ANION GAP 8 (8-16); ASPARTATE AMINO TRANSFERASE 17 U/L (10-37); BILIRUBIN,TOTAL 0.3 MG/DL (0.1-1.0); BLOOD UREA NITROGEN 19 MG/DL (7-18); BUN/CREATININE RATIO 17.3 (5.4-32.0); CALCIUM 7.8 MG/DL (8.5-10.1); CHLORIDE 108 MMOL/L (99-107); GLUCOSE 88 MG/DL (70-104); POTASSIUM 3.7 MMOL/L (3.5-5.1); SODIUM 138 MMOL/L (135-145); TOTAL CARBON DIOXIDE 21.9 MMOL/L (24-32); TOTAL PROTEIN 5.7 G/DL (6.4-8.2); eGFR 64 ML/MIN
[2022-07-16] MEDS: TORSEMIDE PO SCH ×2 (08:00→20:00)
[2022-07-16] MEDS: K and/or MAG REPLACEMENT MC SCH ×2 (08:00→20:00)
[2022-07-16] MEDS: CefTRIAXone/D5W-Rocephin 1gm 50 ML IV SCH (08:23)
[2022-07-16] MEDS: lactobacillus rhamnosus 10,000 MMU CELLS/CAPSULE PO SCH ×2 (08:23→22:26)
[2022-07-16] MEDS: pantoprazole 40mg Tablet.DR PO SCH (08:24)
[2022-07-16] MEDS: metoprolol succinate 25mg (24-HOUR) SR. Tablet PO SCH (08:24)
[2022-07-16] MEDS: oxybutynin 5mg tablet PO SCH ×3 (08:25→22:26)
[2022-07-16] MEDS: allopurinol 100mg tablet PO SCH (08:27)
[2022-07-16] MEDS: docusate sod 100mg capsule PO SCH ×2 (08:27→20:00)
[2022-07-16 10:00] VITALS: BP 119/59
--- NOTE | 2022-07-16 10:07 | NUR ---
called Dr Leary to let him know that Pt is + MRSA in the Ramos. Spoke to Maura his nurse, she states Dr Leary is in surgery but she will let him know.
--- NOTE | 2022-07-16 10:10 | NUR ---
MESSAGE: home [place]#[id number]- FYI- Pt positive MRSA in the Ramos/urine. Dr Leary was notified as well. Thank you. Traci Orozco [id number]
--- NOTE | 2022-07-16 10:54 | NUR ---
Spoke to Dr Leary regarding Pt's + MRSA/palafox. Dr. Leary recommends going home with Ted and follow up with him to remove Palafox at his office. Dr Olson will be notified.
--- NOTE | 2022-07-16 12:23 | NUR ---
Spoke to daughter Marisela on regards to Pt's plan of care. pt [facility] and follow up with Dr Leary for Ramos removal.
[2022-07-16] MEDS ORDERED: SULF1TAB49 PO (14:18)
--- NOTE | 2022-07-16 18:38 | NUR ---
pt grumpy and refused weight and orthostatics. Addendum: 07/16/22 at 1839 by Traci Cameron RN Amended: Links added.
--- NOTE | 2022-07-16 19:05 | NUR ---
Received written report from HELEN Aviles and Verbal report/update from HELEN arellano. Pt refusing iv fluids, refuses to have palafox secured to leg. Addendum: 07/17/22 at 0109 by Austyn Kraft RN Amended: Links added.
--- NOTE | 2022-07-16 19:15 | NUR ---
Did not give report to [facility] nurse Emma CERVANTES, misunderstanding on her schedule. Late. Left a written SBAR and notes on pt.
--- NOTE | 2022-07-16 20:00 | NUR ---
Pt moved to room 353 via bed for MRSA isolation. pt amb to recliner and bed changed. Addendum: 07/17/22 at 0111 by Austyn Kraft RN Amended: Links added.
--- NOTE | 2022-07-16 20:30 | NUR ---
Pt does not have home medications. unable to obtain medications tonight. pt is being discharged tomorrow will take meds when at home. Addendum: 07/16/22 at 2313 by Austyn Kraft RN Amended: Links added.
[2022-07-16] MEDS: hypromellose ophthalmic drops EACHEYE SCH (21:00)
--- NOTE | 2022-07-16 22:00 | NUR ---
Pt refusing assessment at this time, wants catheter out. Addendum: 07/17/22 at 0458 by Austyn Kraft RN Amended: Links added.
[2022-07-16] MEDS: atorvastatin 20mg tablet PO SCH (22:26)
[2022-07-16] MEDS: tamsulosin 0.4mg capsule PO SCH (22:26)
[2022-07-16] MEDS: linezolid 600mg/300ml PREMIX 300 ML IV SCH (22:27)
[2022-07-16 22:30] VITALS: BP 100/58
[2022-07-16] MEDS ORDERED: LIDOcaine 2% 10ml TOPICAL JELLY (Urojet) MM ONE (22:55)
[2022-07-16] MEDS ORDERED: LORazepam 1 MG tablet PO PRN (22:55)
--- NOTE | 2022-07-16 23:30 | NUR ---
Pt allowing palafox care after lidocaine jelly applied, palafox secured to leg with tape. Amb from recliner to bed. sacrum reddened, sl excoriated around gluteal fold, barrier cream offered, pt refuses any pictures, allowed foam dressing to be applied. enc freq position change. Addendum: 07/17/22 at 0119 by Austyn Kraft RN Amended: Links added.
[2022-07-17 06:00] VITALS: BP 125/55
[2022-07-17 06:24] LABS: BASOPHILS % (AUTO) 0.5 % (0-1); EOSINOPHILS # (AUTO) 0.2 X10'3 (0-0.9); HEMATOCRIT 25.8 % (42.0-52.0); HEMOGLOBIN 8.7 g/dl (14.0-17.9); LYMPHOCYTES % (AUTO) 15.4 % (21-51); MEAN CORPUSCULAR HEMOGLOBIN 31.6 PG (27.0-31.0); MEAN CORPUSCULAR HGB CONC 33.5 g/dL (33.0-36.5); MEAN CORPUSCULAR VOLUME 94.1 FL (78-98); MEAN PLATELET VOLUME 7.8 FL (7.4-10.4); MONOCYTES # (AUTO) 0.6 X10'3 (0-0.9); MONOCYTES % (AUTO) 9.8 % (2-12); NEUTROPHILS # (AUTO) 4.3 X10'3 (1.8-7.7); NEUTROPHILS % (AUTO) 70.3 % (42-75); PLATELET COUNT 220 X10'3 (140-440); RED BLOOD COUNT 2.74 X10'6 (4.70-6.10); RED CELL DISTRIBUTION WIDTH 14.2 % (11.5-14.5); WHITE BLOOD COUNT 6.2 X10'3 (4.5-11.0)
[2022-07-17 06:42] LABS: ALANINE AMINOTRANSFERASE 19 U/L (12-78); ALBUMIN 2.2 G/DL (3.4-5.0); ALBUMIN/GLOBULIN RATIO 0.7 (1.1-1.5); ALKALINE PHOSPHATASE 75 IU/L (46-116); ANION GAP 6 (8-16); ASPARTATE AMINO TRANSFERASE 21 U/L (10-37); BILIRUBIN,TOTAL 0.3 MG/DL (0.1-1.0); BLOOD UREA NITROGEN 14 MG/DL (7-18); BUN/CREATININE RATIO 13.9 (5.4-32.0); CALCIUM 8.5 MG/DL (8.5-10.1); CHLORIDE 109 MMOL/L (99-107); CREATININE 1.01 MG/DL (0.60-1.10); GLUCOSE 95 MG/DL (70-104); POTASSIUM 3.3 MMOL/L (3.5-5.1); SODIUM 140 MMOL/L (135-145); TOTAL CARBON DIOXIDE 24.7 MMOL/L (24-32); TOTAL PROTEIN 5.4 G/DL (6.4-8.2); eGFR 71 ML/MIN
--- NOTE | 2022-07-17 06:48 | NUR ---
Problems reprioritized. Patient report given, questions answered & plan of care reviewed with HELEN Aviles Addendum: 07/17/22 at 0649 by Austyn Kraft RN Amended: Links added.
--- NOTE | 2022-07-17 06:50 | NUR ---
Patient in room [facility] 353. I have received report from Emma CERVANTES and had the opportunity to ask questions and assume patient care.
[2022-07-17] MEDS: TORSEMIDE PO SCH (08:00)
[2022-07-17] MEDS: docusate sod 100mg capsule PO SCH (08:00)
[2022-07-17] MEDS: K and/or MAG REPLACEMENT MC SCH (08:00)
[2022-07-17] MEDS: oxybutynin 5mg tablet PO SCH (08:38)
[2022-07-17] MEDS: lactobacillus rhamnosus 10,000 MMU CELLS/CAPSULE PO SCH (08:38)
[2022-07-17] MEDS: pantoprazole 40mg Tablet.DR PO SCH (08:38)
[2022-07-17] MEDS: linezolid 600mg/300ml PREMIX 300 ML IV SCH (08:38)
[2022-07-17] MEDS: allopurinol 100mg tablet PO SCH (08:39)
[2022-07-17] MEDS: metoprolol succinate 25mg (24-HOUR) SR. Tablet PO SCH (08:39)
[2022-07-17 10:00] VITALS: BP 119/47
--- NOTE | 2022-07-17 11:35 | NUR ---
Pt DC back to [place] home via [employer]. Pt A & o x4, still refusing some care, educated on palafox care, supplies given to help with henrry care and Palafox care. pt educated on emptying and to maintain clear flow, free of kinks, and below his waist to prevent back flow. Pt educated on antibiotics and the importance of finishing them. Prescription was faxed 07/16 to pharmacy. [facility] notified of p[facility]. Pt aware the importance of following up with Dr Leary and to STOP pulling and tugging on palafox. 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 Addendum: 07/17/22 at 1744 by Traci Cameron RN Pt refused his MRSA nose swab before DC.
[2022-07-17] MEDS ORDERED: linezolid 600mg tablet PO SCH (20:00)
== END 2022-07-17 11:32 | disposition home or self-care (01) | DRG 682 ==
LOC: ER 00:10 → ED HOLD 02:36 → SUR 3N 11:00
PROVIDERS: ADMIT Family Medicine; ATTEND Family Medicine
PROC: 0T9B70Z Drainage of Bladder with Drainage Device, Via Natural or Artificial Opening (ICD-10-PCS; principal; 2022-07-14)
DX: N17.9 Acute kidney failure, unspecified (principal); I50.33 Acute on chronic diastolic (congestive) heart failure; N39.0 Urinary tract infection, site not specified; D62 Acute posthemorrhagic anemia; I13.0 Hypertensive heart and chronic kidney disease with heart failure and stage 1 through stage 4 chronic kidney disease, or unspecified chronic kidney disease; E87.6 Hypokalemia; E78.00 Pure hypercholesterolemia, unspecified; N18.9 Chronic kidney disease, unspecified; N28.1 Cyst of kidney, acquired; B95.62 Methicillin resistant Staphylococcus aureus infection as the cause of diseases classified elsewhere; F03.90 Unspecified dementia, unspecified severity, without behavioral disturbance, psychotic disturbance, mood disturbance, and anxiety; M10.9 Gout, unspecified; I25.10 Atherosclerotic heart disease of native coronary artery without angina pectoris; I27.20 Pulmonary hypertension, unspecified; I48.91 Unspecified atrial fibrillation; N13.9 Obstructive and reflux uropathy, unspecified; R31.0 Gross hematuria; Z85.46 Personal history of malignant neoplasm of prostate; Z95.1 Presence of aortocoronary bypass graft; Z95.3 Presence of xenogenic heart valve; I25.2 Old myocardial infarction; Z79.899 Other long term (current) drug therapy; Z79.82 Long term (current) use of aspirin
CPT/HCPCS: 36415; 80053; 80061; 81001; 83036; 83605; 83735; 83880; 84100; 84132; 85025; 85027; 85610; 85730; 87040; 87077; 87088; 87186; 93005; 97116; 97161; 97530; 99285; A4333; A4346; A5200; A6212; A6213; A6250; A6258; A6449; G0378; J0696; J1170; J2020; J3480; J7030

== ENCOUNTER 2023-12-24 17:18 | Emergency (ER) | payer MEDICARE, MEDICAID, OTHER ==
[~2023-12-24] VITALS: Ht 170.2 cm; Wt 68.0 kg
[~2023-12-24 17:18] MED LIST changes: +APIX2.5T PO; +ASCO500C17 PO; -ASPI-611 PO; +ASPI325T88 PO; +CALC500T11 PO; +CHOL100046 PO; -CIPR-259 PO; +FAMO20TA8 PO; +FLUT16SP26; -FURO-150 PO; -HYDR-3972 PO; +IRON150C5 PO; -LACT1CAP55 PO; +LACT1TAB15 PO; +MAGN250T11 PO; -METR-159 PO; -NYST15PO4 TOP; +POTA-188 PO; -POTA-205 PO; -SILD100T PO; +TORS20TA3 PO; +ZINC100T2 PO
[2023-12-24 17:31] VITALS: TEMP 99.3
[2023-12-24] MEDS ORDERED: TRAM50TA2 PO (21:45)
[2023-12-24] MEDS: traMADol 50MG tablet PO ONE (21:51)
[2023-12-24 21:52] VITALS: BP 140/90; PULSE 81; RESP 18; O2SAT 99
== END 2023-12-24 21:25 | disposition home or self-care (01) ==
LOC: ER 17:18
DX: S42.401A Unspecified fracture of lower end of right humerus, initial encounter for closed fracture (principal); F03.90 Unspecified dementia, unspecified severity, without behavioral disturbance, psychotic disturbance, mood disturbance, and anxiety; I48.91 Unspecified atrial fibrillation; I25.10 Atherosclerotic heart disease of native coronary artery without angina pectoris; E78.00 Pure hypercholesterolemia, unspecified; I10 Essential (primary) hypertension; I25.2 Old myocardial infarction; Z95.1 Presence of aortocoronary bypass graft; W18.30XA Fall on same level, unspecified, initial encounter; Y93.89 Activity, other specified; Y92.89 Other specified places as the place of occurrence of the external cause; Y99.8 Other external cause status
CPT/HCPCS: 29105; 73080; 99285; A4565

== ENCOUNTER 2024-01-04 09:41 | Day surgery (SDC) | payer MEDICARE, MEDICAID, OTHER ==
[2023-12-31 16:30] LABS: BASOPHILS # (AUTO) 0.1 X10'3 (0-0.2); BASOPHILS % (AUTO) 0.6 % (0-1); EOSINOPHILS # (AUTO) 0.1 X10'3 (0-0.9); EOSINOPHILS % (AUTO) 1.6 % (0-6); LYMPHOCYTES # (AUTO) 1.2 X10'3 (1.1-4.8); LYMPHOCYTES % (AUTO) 14.1 % (21-51); MEAN CORPUSCULAR HEMOGLOBIN 30.9 PG (27.0-31.0); MEAN CORPUSCULAR HGB CONC 32.2 g/dL (33.0-36.5); MEAN CORPUSCULAR VOLUME 96.1 FL (78-98); MONOCYTES % (AUTO) 11.8 % (2-12); NEUTROPHILS # (AUTO) 6.3 X10'3 (1.8-7.7); NEUTROPHILS % (AUTO) 71.9 % (42-75); PRE OP HEMATOCRIT 38.3 % (42.0-52.0); PRE OP HEMOGLOBIN 12.3 g/dL (14.0-17.9); PRE OP PLATELET COUNT 241 X10'3 (140-440); PRE OP WHITE BLOOD COUNT 8.7 10'3 (4.8-10.8); RED BLOOD COUNT 3.99 X10'6 (4.70-6.10); RED CELL DISTRIBUTION WIDTH 14.3 % (11.5-14.5)
[2023-12-31 16:41] LABS: ALBUMIN 3.7 G/DL (3.4-5.0); ALKALINE PHOSPHATASE 72 IU/L (46-116); BLOOD UREA NITROGEN 39 MG/DL (7-18); BUN/CREATININE RATIO 21.3 (10.0-20.0); CALCIUM 9.2 MG/DL (8.5-10.1); CHLORIDE 101 MMOL/L (99-107); CREATININE 1.83 MG/DL (0.60-1.10); PRE OP ALT 18 U/L (30-65); PRE OP ANION GAP 13 (8-16); PRE OP AST 27 U/L (10-37); PRE OP BILIRUB, TOTAL 0.9 MG/DL (0.0-1.0); PRE OP GLUCOSE 77 MG/DL (70-104); PRE OP POTASSIUM 3.5 MMOL/L (3.4-5.1); PRE OP SODIUM 139 MMOL/L (135-145); TOTAL CARBON DIOXIDE 24.9 MMOL/L (24-32); TOTAL PROTEIN 7.5 G/DL (6.4-8.2); eGFR 35 ML/MIN
[2024-01-04] VITALS (10 sets, daily range): BP systolic 145–182; BP diastolic 63–78; PULSE 51–66; RESP 11–20; TEMP 97.7; O2SAT 91–98
[~2024-01-04] VITALS: Ht 160 cm; Wt 66.7 kg
[2024-01-04] MEDS: DOCUMENT DATE & TIME OF BETA-BLOCKER PO ONE (05:30)
[2024-01-04] MEDS: cefazolin 2gm/D5W 100mL 100 ML IV ONE (05:30)
[~2024-01-04 09:41] MED LIST changes: -APIX2.5T PO; -CALC500T11 PO; -CHOL100046 PO; -FAMO20TA8 PO; -FLUT16SP26; -HYPR15DR4 EACHEYE; +LIDOcaine 1% (10mg/ml)w/preservative inj. 20ml MDV ONE; +MECL-231 PO; +TRAM50TA2 PO
[2024-01-04] MEDS: famotidine 20mg tablet PO ONE (11:17)
[2024-01-04] MEDS: ringers solution, lacted 1,000 ML IV SCH (11:17)
[2024-01-04] MEDS ORDERED: meperidine/PF 25mg/ml syringe IV PRN ×3 (11:25)
[2024-01-04] MEDS ORDERED: enalaprilat dihydrate 2.5mg/2ml vial IV PRN (11:25)
[2024-01-04] MEDS ORDERED: proCHLORperazine 10 MG/2 ml inj IV PRN (11:25)
[2024-01-04] MEDS ORDERED: ringers solution, lacted 1,000 ML IV SCH (11:25)
[2024-01-04] MEDS ORDERED: labetalol 20mg/4ml (5mg/ml) syringe IV PRN (11:25)
[2024-01-04] MEDS ORDERED: ondansetron/PF 4mg/2ml inj IV PRN (11:25)
[2024-01-04] MEDS ORDERED: morphine 2 MG/ML inj. syringe IV PRN (11:25)
[2024-01-04] MEDS ORDERED: morphine 4 MG/ML inj SYRINge IV PRN (11:25)
[2024-01-04] MEDS ORDERED: fentaNYL/PF 50MCG/1 ML 2ML syringe ONE (12:36)
[2024-01-04] MEDS ORDERED: MIDAZolam 1 MG/ML 5ML VIAL ONE (12:36)
[2024-01-04] MEDS ORDERED: dexamethasone sod phosphate 4mg/ml inj. ONE (13:10)
[2024-01-04] MEDS ORDERED: LIDOcaine 2% (20mg/ml) 5ml vial ONE (13:10)
[2024-01-04] MEDS ORDERED: ROPIVAcaine 0.5% (5mg/ml) 30ml vial ONE (13:10)
[2024-01-04] MEDS: BUPIVAcaine/PF 2.5mg/ml (0.25%) 10ml vial ONE (15:21)
== END 2024-01-04 15:49 ==
LOC: PAS 09:41
PROVIDERS: ATTEND Orthopaedic Surgery Hand Surgery
DX: S52.021A Displaced fracture of olecranon process without intraarticular extension of right ulna, initial encounter for closed fracture (principal); G89.18 Other acute postprocedural pain; I51.7 Cardiomegaly; I49.3 Ventricular premature depolarization; I25.2 Old myocardial infarction; Z86.73 Personal history of transient ischemic attack (TIA), and cerebral infarction without residual deficits; Z79.82 Long term (current) use of aspirin; Z79.899 Other long term (current) drug therapy; Z90.89 Acquired absence of other organs; Z95.1 Presence of aortocoronary bypass graft; Z98.890 Other specified postprocedural states; Z80.1 Family history of malignant neoplasm of trachea, bronchus and lung; X58.XXXA Exposure to other specified factors, initial encounter; Y93.89 Activity, other specified; Y92.89 Other specified places as the place of occurrence of the external cause; Y99.8 Other external cause status
CPT/HCPCS: 24685; 36415; 64415; 80053; 82948; 85025; 93005; A4215; A4565; A4615; A4618; A6222; A6402; A7000; C1713; J0690; J1100; J2001; J2250; J2795; J3010; J3490; J7030; J7120; L3999; Z7506; Z7508; Z7512; Z7610; A6449

== ENCOUNTER 2024-07-29 21:37 | Inpatient (IN) | payer MEDICARE, MEDICAID, OTHER ==
[~2024-07-29] VITALS: Ht 160 cm; Wt 68.0 kg
[~2024-07-29 21:37] MED LIST changes: -LIDOcaine 1% (10mg/ml)w/preservative inj. 20ml MDV ONE; +desflurane 240ml liquid inh. IH ONE
[2024-07-30] MEDS: HYDROcodone/acetaminophen 10/325mg tab PO ONE (01:44)
[2024-07-30 02:11] LABS: BASOPHILS # (AUTO) 0.1 X10'3 (0-0.2); BASOPHILS % (AUTO) 0.7 % (0-1); EOSINOPHILS % (AUTO) 0.5 % (0-6); HEMATOCRIT 37.8 % (42.0-52.0); HEMOGLOBIN 12.8 g/dl (14.0-17.9); LYMPHOCYTES # (AUTO) 0.8 X10'3 (1.1-4.8); LYMPHOCYTES % (AUTO) 9.2 % (21-51); MEAN CORPUSCULAR HEMOGLOBIN 31.5 PG (27.0-31.0); MEAN CORPUSCULAR HGB CONC 33.8 g/dL (33.0-36.5); MEAN CORPUSCULAR VOLUME 93.1 FL (78-98); MEAN PLATELET VOLUME 8.1 FL (7.4-10.4); MONOCYTES % (AUTO) 12.2 % (2-12); NEUTROPHILS # (AUTO) 6.6 X10'3 (1.8-7.7); NEUTROPHILS % (AUTO) 77.4 % (42-75); PLATELET COUNT 216 X10'3 (140-440); RED BLOOD COUNT 4.06 X10'6 (4.70-6.10); RED CELL DISTRIBUTION WIDTH 14.5 % (11.5-14.5); WHITE BLOOD COUNT 8.6 X10'3 (4.5-11.0)
[2024-07-30 02:22] LABS: PROTHROMBIN TIME 10.9 SECONDS (9.0-12.0)
[2024-07-30 02:24] LABS: ALBUMIN 3.4 G/DL (3.4-5.0); ANION GAP 7 (8-16); BLOOD UREA NITROGEN 33 MG/DL (7-18); BUN/CREATININE RATIO 23.9 (10.0-20.0); CALCIUM 9.4 MG/DL (8.5-10.1); CHLORIDE 106 MMOL/L (99-107); CREATININE 1.38 MG/DL (0.60-1.10); GLUCOSE 119 MG/DL (70-104); SODIUM 139 MMOL/L (135-145); TOTAL CARBON DIOXIDE 25.9 MMOL/L (24-32); eCRCL 32 ML/MIN; eGFR 49 ML/MIN
[2024-07-30] MEDS ORDERED: magnesium sulf-water 4G/100mL 100 ML IV PRN (02:40)
[2024-07-30] MEDS ORDERED: potassium Cl 20 mEq SR tablet PO PRN ×2 (02:40)
[2024-07-30] MEDS ORDERED: magnesium sulf-water 2g/50mL 50 ML IV PRN (02:40)
[2024-07-30] MEDS ORDERED: potassium Cl 40MEQ/1/2NS 520ml 520 ML IV PRN (02:40)
[2024-07-30] MEDS ORDERED: ondansetron/PF 4mg/2ml inj IV PRN (02:40)
[2024-07-30] MEDS ORDERED: acetaminophen 325mg tablet PO PRN ×2 (02:40→03:10)
[2024-07-30] MEDS ORDERED: morphine 2 MG/ML inj. syringe IV PRN (03:10)
[2024-07-30] MEDS ORDERED: HYDROcodone/acetaminophen 5mg/325mg tablet PO PRN (03:10)
[2024-07-30 03:17] LABS: MAGNESIUM 2.1 MG/DL (1.5-2.4)
[2024-07-30] MEDS: normal saline 1000ml 1,000 ML IV SCH (03:43)
[2024-07-30] MEDS: pantoprazole 40mg Tablet.DR PO SCH (05:20)
[2024-07-30] MEDS: tamsulosin 0.4mg capsule PO SCH (06:55)
[2024-07-30] MEDS: tamsulosin 0.4mg capsule PO ONE (07:00)
[2024-07-30] MEDS: morphine 2 MG/ML inj. syringe IV PRN (07:01)
[2024-07-30 07:39] LABS: BILIRUBIN,URINE NEGATIVE (Neg); CLARITY,URINE CLEAR (Clear); COLOR,URINE YELLOW (Yellow); GLUCOSE, URINE NEGATIVE (Neg); KETONES,URINE NEGATIVE (Neg); LEUKOCYTE ESTERASE ,URINE NEGATIVE (Neg); NITRITES, URINE NEGATIVE (Neg); OCCULT BLOOD,URINE TRACE-INTACT (Neg); PH,URINE 5.5 (4.8-8.0); PROTEIN,URINE TRACE mg/dl (Neg); UROBILINOGEN,URINE 0.2 E.U/dL (0.2-1.0)
[2024-07-30 07:49] LABS: UA COLLECTION TYPE STRAIGHT CATH
[2024-07-30 07:50] LABS: BACTERIA,URINE NONE SEEN /HPF (Neg); MUCUS STRANDS FEW /LPF (Neg); SQUAMOUS EPITHELIAL CELL,UR NONE SEEN /LPF (FEW); WBC,URINE 0-4 /HPF (0-4)
[2024-07-30] MEDS ORDERED: heparin, porcine 5000 units/ml vial SQ SCH (08:00)
[2024-07-30] MEDS: docusate sod 100mg capsule PO SCH (08:00)
[2024-07-30] MEDS: K and/or MAG REPLACEMENT MC SCH (08:00)
[2024-07-30] MEDS: enoxaparin 40mg/0.4ml syringe SUBCUT SCH (08:00)
[2024-07-30 09:07] LABS: OSMOLALITY 300 MOSM/K (280-300)
[2024-07-30 09:14] LABS: HEMOGLOBIN A1C 6.1 % (4.5-6.2)
[2024-07-30 10:03] LABS: % IRON SATURATION 10 % (11-46); IRON 26 UG/DL (53-167); TOTAL IRON BINDING CAPACITY 273 UG/DL (259-388)
[2024-07-30] MEDS ORDERED: calcium carbonate 500mg chew tablet PO SCH (14:55)
[2024-07-30] MEDS: calcium carbonate 500mg chew tablet PO PRN (15:10)
[2024-07-30] MEDS: HYDROcodone/acetaminophen 10/325mg tab PO PRN (19:55)
[2024-07-30] MEDS ORDERED: tamsulosin 0.4mg capsule PO ONE (21:00)
[2024-07-30 23:15] VITALS: BP 126/64; PULSE 80; RESP 16; TEMP 98.4; O2SAT 94
[2024-07-31] VITALS (17 sets, daily range): BP systolic 124–170; BP diastolic 61–74; PULSE 86–100; RESP 11–18; TEMP 96.9–98; O2SAT 95–100
[2024-07-31 06:21] LABS: BASOPHILS % (AUTO) 0.5 % (0-1); EOSINOPHILS # (AUTO) 0.3 X10'3 (0-0.9); EOSINOPHILS % (AUTO) 3.5 % (0-6); HEMATOCRIT 33.1 % (42.0-52.0); HEMOGLOBIN 11.3 g/dl (14.0-17.9); LYMPHOCYTES % (AUTO) 12.3 % (21-51); MEAN CORPUSCULAR HEMOGLOBIN 31.7 PG (27.0-31.0); MEAN CORPUSCULAR VOLUME 93.1 FL (78-98); MEAN PLATELET VOLUME 8.2 FL (7.4-10.4); MONOCYTES # (AUTO) 1.1 X10'3 (0-0.9); MONOCYTES % (AUTO) 14.6 % (2-12); NEUTROPHILS # (AUTO) 5.4 X10'3 (1.8-7.7); NEUTROPHILS % (AUTO) 69.1 % (42-75); PLATELET COUNT 168 X10'3 (140-440); RED BLOOD COUNT 3.56 X10'6 (4.70-6.10); RED CELL DISTRIBUTION WIDTH 14.4 % (11.5-14.5); WHITE BLOOD COUNT 7.8 X10'3 (4.5-11.0)
[2024-07-31 06:41] LABS: ALANINE AMINOTRANSFERASE 17 U/L (12-78); ALBUMIN 2.8 G/DL (3.4-5.0); ALBUMIN/GLOBULIN RATIO 0.8 (1.1-1.5); ALKALINE PHOSPHATASE 77 IU/L (46-116); ANION GAP 8 (8-16); ASPARTATE AMINO TRANSFERASE 16 U/L (10-37); BILIRUBIN,TOTAL 0.8 MG/DL (0.1-1.0); BLOOD UREA NITROGEN 24 MG/DL (7-18); BUN/CREATININE RATIO 18.8 (10.0-20.0); CALCIUM 8.8 MG/DL (8.5-10.1); CHLORIDE 106 MMOL/L (99-107); CREATININE 1.28 MG/DL (0.60-1.10); GLUCOSE 104 MG/DL (70-104); MAGNESIUM 2.1 MG/DL (1.5-2.4); POTASSIUM 4.1 MMOL/L (3.5-5.1); SODIUM 139 MMOL/L (135-145); TOTAL CARBON DIOXIDE 25.3 MMOL/L (24-32); TOTAL PROTEIN 6.3 G/DL (6.4-8.2); eCRCL 34 ML/MIN; eGFR 53 ML/MIN
[2024-07-31] MEDS ORDERED: ceFAZolin 1000mg inj ONE ×3 (14:47→16:49)
[2024-07-31] MEDS ORDERED: fentaNYL/PF 50MCG/1 ML 2ML syringe ONE (16:47)
[2024-07-31] MEDS ORDERED: midazolam 1 mg/ML 2ml injection ONE (16:47)
[2024-07-31] MEDS ORDERED: dexamethasone sod phosphate 4mg/ml inj. ONE (16:49)
[2024-07-31] MEDS ORDERED: albumin (Human) 5% 250ml 250 ML IV ONE ×2 (17:16)
[2024-07-31] MEDS ORDERED: ePHEDrine 50MG/ML INJ. ONE (17:17)
[2024-07-31] MEDS ORDERED: labetalol 20mg/4ml (5mg/ml) syringe IV PRN (17:50)
[2024-07-31] MEDS ORDERED: hydrALAZINE 20mg/ml inj. IV PRN (17:50)
[2024-07-31] MEDS ORDERED: ondansetron/PF 4mg/2ml inj IV PRN (17:50)
[2024-07-31] MEDS ORDERED: fentaNYL/PF 50MCG/1 ML 2ML syringe IV PRN ×2 (17:50)
[2024-07-31] MEDS ORDERED: morphine 4 MG/ML inj SYRINge IV PRN (17:50)
[2024-07-31] MEDS: ceFAZolin 1000mg inj IR ONE (17:56)
[2024-07-31] MEDS ORDERED: tobramycin 40mg/ml inj ONE (18:01)
[2024-07-31] MEDS ORDERED: mupirocin 2% ointment 22GM ONE (18:01)
[2024-07-31] MEDS ORDERED: bacitracin 15gm ointment TP ONE (18:02)
[2024-08-01] MEDS: ringers solution, lacted 1,000 ML IV SCH (02:59)
[2024-08-01] MEDS: morphine 2 MG/ML inj. syringe IV PRN (03:11)
[2024-08-01 06:33] LABS: BASOPHILS % (AUTO) 0.1 % (0-1); EOSINOPHILS % (AUTO) 0 % (0-6); HEMATOCRIT 31.9 % (42.0-52.0); HEMOGLOBIN 10.9 g/dl (14.0-17.9); LYMPHOCYTES # (AUTO) 0.2 X10'3 (1.1-4.8); LYMPHOCYTES % (AUTO) 3.5 % (21-51); MEAN CORPUSCULAR HEMOGLOBIN 32.3 PG (27.0-31.0); MEAN CORPUSCULAR HGB CONC 34.3 g/dL (33.0-36.5); MEAN PLATELET VOLUME 8.5 FL (7.4-10.4); MONOCYTES # (AUTO) 0.4 X10'3 (0-0.9); MONOCYTES % (AUTO) 6.3 % (2-12); NEUTROPHILS % (AUTO) 90.1 % (42-75); PLATELET COUNT 154 X10'3 (140-440); RED BLOOD COUNT 3.39 X10'6 (4.70-6.10); RED CELL DISTRIBUTION WIDTH 14.1 % (11.5-14.5); WHITE BLOOD COUNT 6.7 X10'3 (4.5-11.0)
[2024-08-01 06:43] LABS: ALANINE AMINOTRANSFERASE 18 U/L (12-78); ALBUMIN 3.1 G/DL (3.4-5.0); ALBUMIN/GLOBULIN RATIO 0.9 (1.1-1.5); ALKALINE PHOSPHATASE 74 IU/L (46-116); ANION GAP 11 (8-16); ASPARTATE AMINO TRANSFERASE 16 U/L (10-37); BILIRUBIN,TOTAL 0.5 MG/DL (0.1-1.0); BLOOD UREA NITROGEN 25 MG/DL (7-18); BUN/CREATININE RATIO 17.1 (10.0-20.0); CALCIUM 8.8 MG/DL (8.5-10.1); CHLORIDE 105 MMOL/L (99-107); CREATININE 1.46 MG/DL (0.60-1.10); GLUCOSE 167 MG/DL (70-104); MAGNESIUM 2.2 MG/DL (1.5-2.4); POTASSIUM 4.1 MMOL/L (3.5-5.1); SODIUM 138 MMOL/L (135-145); TOTAL CARBON DIOXIDE 21.6 MMOL/L (24-32); TOTAL PROTEIN 6.7 G/DL (6.4-8.2); eCRCL 30 ML/MIN; eGFR 46 ML/MIN
[2024-08-01 07:01] VITALS: BP 133/60; PULSE 83; RESP 16; TEMP 97; O2SAT 92
[2024-08-01 10:00] VITALS: BP 140/78; PULSE 78; RESP 16; TEMP 98.9; O2SAT 95
[2024-08-01] MEDS: heparin, porcine 5000 units/ml vial SQ ONE (12:30)
[2024-08-01 18:00] VITALS: BP 111/45; PULSE 103; RESP 15; TEMP 100; TEMP 99.1; O2SAT 90
[2024-08-01 20:00] VITALS: RESP 15; O2SAT 90
[2024-08-01] MEDS: heparin, porcine 5000 units/ml vial SQ SCH (20:00)
[2024-08-01] MEDS: LIDOCAINE 5% OINTMENT 35GM TP SCH (20:00)
[2024-08-01] MEDS: guaiFENesin ER 600mg tablet PO SCH (20:17)
[2024-08-01 22:00] VITALS: BP 142/72; PULSE 89; RESP 18; TEMP 97.4; O2SAT 98
[2024-08-02 05:59] LABS: BASOPHILS % (AUTO) 0.2 % (0-1); EOSINOPHILS # (AUTO) 0.1 X10'3 (0-0.9); EOSINOPHILS % (AUTO) 0.9 % (0-6); HEMATOCRIT 25.8 % (42.0-52.0); LYMPHOCYTES # (AUTO) 0.7 X10'3 (1.1-4.8); LYMPHOCYTES % (AUTO) 7.2 % (21-51); MEAN CORPUSCULAR HEMOGLOBIN 32.3 PG (27.0-31.0); MEAN CORPUSCULAR VOLUME 92.3 FL (78-98); MEAN PLATELET VOLUME 8.5 FL (7.4-10.4); MONOCYTES % (AUTO) 10.7 % (2-12); NEUTROPHILS # (AUTO) 7.4 X10'3 (1.8-7.7); PLATELET COUNT 159 X10'3 (140-440); RED BLOOD COUNT 2.79 X10'6 (4.70-6.10); WHITE BLOOD COUNT 9.2 X10'3 (4.5-11.0)
[2024-08-02 06:00] VITALS: BP 141/91; PULSE 75; RESP 16; TEMP 97.2; O2SAT 95
[2024-08-02 06:14] LABS: ALANINE AMINOTRANSFERASE 16 U/L (12-78); ALBUMIN 2.6 G/DL (3.4-5.0); ALBUMIN/GLOBULIN RATIO 0.8 (1.1-1.5); ALKALINE PHOSPHATASE 60 IU/L (46-116); ANION GAP 5 (8-16); ASPARTATE AMINO TRANSFERASE 14 U/L (10-37); BILIRUBIN,TOTAL 0.4 MG/DL (0.1-1.0); BLOOD UREA NITROGEN 30 MG/DL (7-18); BUN/CREATININE RATIO 23.8 (10.0-20.0); CALCIUM 8.6 MG/DL (8.5-10.1); CHLORIDE 109 MMOL/L (99-107); CREATININE 1.26 MG/DL (0.60-1.10); GLUCOSE 109 MG/DL (70-104); MAGNESIUM 2.3 MG/DL (1.5-2.4); SODIUM 138 MMOL/L (135-145); TOTAL CARBON DIOXIDE 23.8 MMOL/L (24-32); TOTAL PROTEIN 5.7 G/DL (6.4-8.2); eCRCL 35 ML/MIN; eGFR 54 ML/MIN
== END 2024-08-02 17:20 | DRG 480 ==
LOC: ER 21:37 → ED HOLD 07-30 02:42 → EDBEDREQ 07-30 09:00 → ORTHO 4S 07-30 23:25
PROVIDERS: ADMIT Internal Medicine Sleep Medicine; ATTEND Family Medicine
PROC: 0QS606Z Reposition Right Upper Femur with Intramedullary Internal Fixation Device, Open Approach (ICD-10-PCS; principal; 2024-07-31 16:45)
DX: M80.051A Age-related osteoporosis with current pathological fracture, right femur, initial encounter for fracture (principal); J96.01 Acute respiratory failure with hypoxia; I13.0 Hypertensive heart and chronic kidney disease with heart failure and stage 1 through stage 4 chronic kidney disease, or unspecified chronic kidney disease; S22.42XA Multiple fractures of ribs, left side, initial encounter for closed fracture; I50.32 Chronic diastolic (congestive) heart failure; N17.9 Acute kidney failure, unspecified; C61 Malignant neoplasm of prostate; E78.00 Pure hypercholesterolemia, unspecified; N18.31 Chronic kidney disease, stage 3a; E86.0 Dehydration; F03.90 Unspecified dementia, unspecified severity, without behavioral disturbance, psychotic disturbance, mood disturbance, and anxiety; I25.10 Atherosclerotic heart disease of native coronary artery without angina pectoris; I48.91 Unspecified atrial fibrillation; I25.2 Old myocardial infarction; Z88.8 Allergy status to other drugs, medicaments and biological substances; Z79.82 Long term (current) use of aspirin; Z79.899 Other long term (current) drug therapy; Z95.1 Presence of aortocoronary bypass graft; W18.39XA Other fall on same level, initial encounter; Y93.89 Activity, other specified; Y92.89 Other specified places as the place of occurrence of the external cause; Y99.8 Other external cause status
CPT/HCPCS: 36415; 71045; 71100; 72128; 72131; 73502; 76000; 80048; 80053; 81001; 82948; 83036; 83540; 83550; 83735; 83930; 85025; 85610; 86885; 86900; 86901; 87081; 93005; 93306; 97110; 97162; 97530; 99285; A4215; A4314; A4615; A4618; A5200; A6212; A6213; A6258; A6449; A6590; A7000; C1713; G0378; J0690; J1100; J1644; J1650; J2250; J2270; J3010; J3260; J3490; J7030; P9045